=== PATIENT | male | born 1955 | race Caucasian/White ===

== ENCOUNTER 2016-11-04 05:50 | Inpatient (IN) | payer MEDICARE, MEDICAID ==
[~2016-11-04] VITALS: Ht 170.2 cm; Wt 64.1 kg
[2016-11-04] VITALS (12 sets, daily range): BP systolic 114–161; BP diastolic 80–104; PULSE 93–114; RESP 11–22; O2SAT 95–97
[~2016-11-04 05:50] MED LIST: ACLI400A2 IH; ADV250INH IH; ALBU8.5H2 INHALATION; ALEN70TA2 PO; ASCO-294 PO; ASPI-973 PO; CALC3.8S NS; CARV3.12 PO; CHOL10008 PO; CLOP75TA28 PO; DENO60DI SQ; DOCU-41 PO; FLUO20CA25 PO; FUR20 PO; IPRA0.2S51 IH; MEGE400O PO; METH12DI SQ; METH5TAB3 PO; MIRT15TA6 PO; MYA400 PO; OMEP20CA11 PO; POLY17PO2 PO; TAMS0.4C98 PO; TEST200V20 IM; TIOT18CA3 IH; ZOF8 PO; [UNRECOGNIZED DRUG - CODE] PO
--- NOTE | 2016-11-04 06:09 | ED.REPORT ---
HPI-Extremity Problem Lower Date of Service Nov 04, 2016 ED Provider: Lorene Titus MD The pt is a 61 y/o male w/ a hx of HTN, osteoporosis, anemia, and hyperlipidemia , presenting to the ED complaining of L hip pain via EMS due to a GLF at home. He describes "falling asleep standing up". The pt has taken 5, 5 mg Methadones for the pain. He usually takes 4, 5 mg Methadones to manage the pain. Nursing Notes Stated Complaint: GLF,HIP PAIN Chief Complaint: Extremity Trauma Nursing Notes Reviewed: Yes Allergies: Coded Allergies: Benzodiazepines (Verified Allergy, Unknown, "LOOPY", 11/04/16) hydromorphone HCl (Verified Allergy, Unknown, "LOOPY", 11/04/16) Scheduled Albuterol HFA (Proair HFA) 8.5 Gm Hfa.aer.ad 2 PUFFS INHALATION Q4H Alendronate Sodium (Fosamax) 70 Mg Tablet 70 MG PO WEEKLY Ascorbate Calcium (Vitamin C) 500 Mg Tablet 500 MG PO DAILY Aspirin (Aspirin) 81 Mg Tablet 81 MG PO DAILY Carvedilol (Coreg) 3.125 Mg Tablet 3.125 MG PO BID Clopidogrel (Clopidogrel) 75 Mg Tablet 75 MG PO DAILY Ethambutol (Ethambutol) 400 Mg Tablet 1,200 MG PO WEEKLY Fluoxetine (Fluoxetine) 20 Mg Capsule 20 MG PO DAILY Fluticasone/Salmeterol (Advair 250-50 Diskus) 60 Puff/Inh Disk 1 PUFF IH BID Furosemide (Furosemide) 20 Mg Tab 20 MG PO DAILY Ipratropium [place] (Ipratropium [place] Inhalant Solution) 0.2 Mg/1 Ml Solution 0.2 MG IH QID Megestrol Acetate (Megace) 400 Mg/10 Ml Oral.susp 400 MG PO DAILY Methadone (Methadone) 5 Mg Tablet 5 MG PO Q4H Mirtazapine (Mirtazapine) 15 Mg Tablet 15 MG PO HS Omeprazole (Omeprazole) 20 Mg Capsule.dr 20 MG PO DAILY Polyethylene Glycol 3350 (Polyethylene Glycol 3350) 17 Gm Powd.pack 17 GM PO DAILY Tamsulosin (Flomax) 0.4 Mg Capsule 0.4 MG PO DAILY Tiotropium [place] (Spiriva) 18 Mcg Cap.w.dev 18 MCG IH DAILY Scheduled PRN Docusate Sodium (Colace) 100 Mg Capsule 100 MG PO DAILY PRN PRN For Constipation Ondansetron (Zofran) 8 Mg Tablet 8 MG PO Q8H PRN PRN For Nausea Miscellaneous Medications Aclidinium [place] (Tudorza Pressair) 400 Mcg Aer.pow.ba 400 MCG IH Calcitonin,Wallis,Synthetic (Calcitonin-Wallis) 3.7 Ml [place].pump 3.7 ML NS Cholecalciferol (Vitamin D3) (Vitamin D3) 1,000 Unit Tab.chew 1,000 UNIT PO Denosumab (Prolia) 60 Mg/1 Ml Syringe 60 MG SQ Methylnaltrexone [place] (Relistor) 12 Mg/0.6 Ml Syringe 12 MG SQ Rifabutin (Rifabutin) 150 Mg Capsule 300 MG PO Testosterone Cypionate (Testosterone Cypionate) 200 Mg/1 Ml Vial 200 MG IM General Time Seen by MD: 06:02 Chief Complaint Hip injury left Hx Obtained From: Patient, EMS Arrived By: Ambulance Onset Occurred: Just prior to arrival Symptom Duration: Since onset Caused by: Fall on ground Immunizations: All up to date Recent Healthcare: No recent hospitalization, Recent doctor visit Similar Sx Previous: No Past Medical History Past Medical History 1. Bladder cancer, diagnosed on February 06, 2012 -poorly differentiated urothelial carcinoma, grade 3/3 2. Hypertension. 3. Hyperlipidemia. 4. Hepatitis C secondary to IV drug use. 5. History of TIA. 6. Bilateral pulmonary embolism diagnosed in June 2012. 7. History of fungemia with sepsis in August 2012 8. History C. diff colitis in August 2012 hospitalization. 9. History of enterocutaneous fistula. 10. COPD. 11. Coronary artery disease. 12. Chronic pain with opiate habituation. 13. Osteoporosis with history of compression fractures.. 14. Chronic anemia. 15. Left ventricular systolic heart failure, with ejection fraction of 40% to 45% with mild to moderate global hypokinesis of left ventricle on echocardiogram September 20, 2013. 16. Chronic kidney disease, stage 3. Past Surgical History Port-A-Cath in February 2012. Has had this one for a year radical bladder resection with construction of a neobladder Lumbar laminectomy in 1986. Smoking History Former Smoker Ambulatory Status Independent Review of Systems Musculoskeletal: Reports: Joint pain (L hip ) Complete sys rev & neg: except as marked. Physical Exam Initial Vital Signs Vital Signs (First) Date Time Temp Pulse Resp B/P Pulse Ox O2 Delivery O2 Flow Rate FiO2 11/04/16 06:07 36.4 114 16 143/97 97 Room Air Initial VS: Reviewed Left Hip: Positive: Leg externally rotated, Tenderness present... (Moderate) Ankle / Foot: No deformity, Neurologic intact, Vascular intact General/Constitutional: Awake, Alert Respiratory / Chest: Breath sounds = bilat, No rales Scattered minor wheezes throughout lung griggs Cardiovascular: Heart rate NL, Regular rhythm, Heart sounds NL Good peripheral pulses Skin: No rash, Warm, Dry No bruising over hips Multiple bruises throughout body Fragile skin Neurologic: Oriented X3, Speech NL Head / Eyes: Atraumatic, Normocephalic ENT: Atraumatic, Airway patent Neck: Atraumatic, Supple, Full range of motion Psychiatric: Affect NL, Mood NL Interpretation & Diagnostics Lab Results Interpretation Result Diagram: 11/04/16 0830 11/04/16 0830 Test 11/04/16 08:30 White Blood Count 18.3th/mm3 (3.8-10.1) Red Blood Count 3.78mil/mm3 (4.40-5.80) Hemoglobin 13.0g/dL (13.8-17.2) Hematocrit 37.7% (41.0-50.0) Mean Corpuscular Volume 99.7fL (81-100) Mean Corpuscular Hemoglobin 34.4pg (27.0-35.0) Mean Corpuscular Hemoglobin Concent 34.5% (32.0-37.0) Red Cell Distribution Width 15.2% (12.3-15.4) Platelet Count 182bil/L (150-400) Neutrophils (%) (Auto) 77.3% (40-74) Lymphocytes (%) (Auto) 11.3% (14-46) Monocytes (%) (Auto) 9.4% (4-12) Eosinophils (%) (Auto) 0.4% (0-5) Basophils (%) (Auto) 0.1% (0-3) Prothrombin Time 10.8sec (8.1-12.5) Prothromb Time International Ratio 1.01ratio Activated Partial Thromboplast Time 24.3sec (22.8-33.0) Sodium Level 133mEq/L (134-144) Potassium Level 4.9mEq/L (3.5-5.2) Chloride Level 99mEq/L (97-108) Carbon Dioxide Level 20mmol/L (18-29) Blood Urea Nitrogen 80mg/dL (8-27) Creatinine 2.52mg/dL (0.76-1.27) Estimat Glomerular Filtration Rate 28mL/min (>59) Glucose Level 228mg/dL (60-99) Calcium Level 8.6mg/dL (8.5-10.1) Total Bilirubin 0.9mg/dL (0.0-1.2) Aspartate Amino Transf (AST/SGOT) 68U/L (0-50) Alanine Aminotransferase (ALT/SGPT) 153U/L (0-44) Alkaline Phosphatase 97U/L (25-160) Total Protein 6.1g/dL (6.4-8.4) Albumin 3.6g/dL (3.4-5.0) ECG Interpretation ECG Interpretation: Rate 112 Sinus tachycardia Right atrial enlargement Posterior infarct, old Poor baseline No acute changes Time: 08:15 Interpreted by: Elevator Starter X-Ray Chest Interpretation Chest Xray Interpretation: Impression: No acute findings Interpretation / Wet Read by: Wet read ED physician X-Ray Interpretation Xray Interpretation: X-RAY PELVIS W/LAT HIP (LT) IMPRESSION: Comminuted left intertrochanteric fracture Dictated by: Kuldeep Crook M.D. on 11/04/2016 at 8:30 Approved by: Kuldeep Crook M.D. on 11/04/2016 at 8:33 Interpretation / Wet Read by: Interpret - Radiologist Re-Eval/Medical Decision Med Decision/Clinical Course 61-year-old gentleman with complex medical history. Recent admission to [facility] from [address] [place] [address] with a COPD exacerbation. He describes it as pneumonia however workup does not suggest this. He had a pulmonary embolism in [address] scan was done a month ago and showed no evidence of recurrent pulmonary embolism. He does have a history of significant steroid use over the course of his lifetime with osteoporosis. Currently has a left hip fracture. He will need to be admitted to hospitalist with orthopedic consult. Initial chest x-ray does not suggest pneumonia. He has got minor scattered wheezes only. White count is slightly elevated urine will be obtained. He does not have any signs or symptoms of infection or sepsis at this point. EKG shows no acute findings remainder of labs are unremarkable. Source of Hx: Old records, EMS Re-Evaluation/Progress : Time of Eval: 07:14 Re-Evaluation/Progress Note: Discussed radiology results, which showed fractures and discussed need for surgery. Discussed plan for admit. Consultation #1: Referral / Consult Name: Jean Nickerson MD Consulted With: Photoengraver Call Returned at: 09:56 Note: Discussed pt's case. He will try to fix it later today and he does not need a CT scan. Consultation #2: Referral / Consult Name: Irvin Monaco MD Consulted With: Hospitalist Call Returned at: 10:20 Interactive Project Manager: Will see patient, Agrees with eval, Agrees with plan, Accepts admit Counseled Regarding: Diagnosis, Lab results, Need for admission Discharge & Departure Impression: Primary Impression: Hip fracture Additional Impression: Fall from ground level Disposition: ADMITTED TO HOSPITAL Discharge Condition All VS Reviewed: Yes Condition: Stable Referrals: Heriberto Espino MD (PCP) Scribe Attestation Portions of this note were transcribed by Agustín Dietz. I, Dr. Titus personally performed the history, physical exam and medical decision-making; I reviewed and confirmed the accuracy of the information in the transcribed note. Signed by : Soraida Alonso, 11/04/16 and 08. copies to: Saulo Palma DO; Heriberto Espino MD, Shawna L MD Nov 04, 2016 06:09 Agustín Dietz Nov 04, 2016 08:20
[2016-11-04] MEDS ORDERED: Ondansetron 2 mg/mL 2 mL Inj IVPUSH ONE (07:25)
--- NOTE | 2016-11-04 08:35 | DRSVH ---
PROCEDURE: X-RAY PELVIS W/LAT HIP (LT) ([id number]) INDICATIONS: hip pain post fall TECHNIQUE: AP pelvis with lateral view(s) of the left hip(s). COMPARISON: None. FINDINGS: Bones: Comminuted left intertrochanteric fracture. Mild bilateral hip degeneration. Lower lumbar disc ogenic change is Soft tissues: The visualized bowel gas pattern is normal. No suspicious soft tissue calcifications. Surgical clips projecting in the pelvis IMPRESSION: Comminuted left intertrochanteric fracture Dictated by: Kuldeep Crook M.D. on 11/04/2016 at 8:30 Approved by: Kuldeep Crook M.D. on 11/04/2016 at 8:33
[2016-11-04 08:38] LABS: BASOPHILS % (AUTO) 0.1 % (0-3); EOSINOPHILS % (AUTO) 0.4 % (0-5); MONOCYTES % (AUTO) 9.4 % (4-12); Mean Corpuscular Hemoglobin 34.4 pg (27.0-35.0); Mean Corpuscular Volume 99.7 fL (81-100); NEUTROPHILS % (AUTO) 77.3 % (40-74); Platelet Count 182 bil/L (150-400)
[2016-11-04 08:53] LABS: INR 1.01 ratio
[2016-11-04] MEDS ORDERED: HYDROmorphone 1 mg/mL Inj IVPUSH PRN ×2 (10:15→11:55)
[2016-11-04] MEDS ORDERED: [UNRECOGNIZED DRUG - CODE] PO (11:42)
[2016-11-04] MEDS ORDERED: ALBU18HF INH (11:42)
[2016-11-04] MEDS ORDERED: SYMINH INH (11:42)
[2016-11-04] MEDS ORDERED: OXYC1TAB24 PO (11:42)
[2016-11-04] MEDS ORDERED: CARV3.122 PO (11:47)
[2016-11-04] MEDS ORDERED: ALEN70TA46 PO (11:47)
--- NOTE | 2016-11-04 12:03 | PCM.HPMED ---
Subjective Date of Service Nov 04, 2016 Primary Provider: Admitting Physician: Tabatha Monaco MD Primary Care Physician: Heriberto Espino MD Attending Physician: Tabatha Monaco MD Chief Complaint: Ground-level fall History of Present Illness: 61 y/o male w/ extensive medical history with former heavy smoker>40 pack years, COPD, recent COPD exacerbation in 09/18 at [facility], [place], [place], CAD w/ cardiomyopathy, CHF, most recent TTE september/2013 EF60-65%, no sig valvular dz, hx of bilateral PE, dvt in 2012, used to be on Coumadin, currently not on any AC , History of TIA, CKD, bladder CA, initially diagnosed on February 06, 2012 s/p radical bladder resection with construction of a neobladder from small bowel in HTN, HLD chronic hepC from former IVDU, not treated yet Chronic pain with opiate habituation. Osteoporosis with history of compression fractures. anemia pt presented today after presumed ground level fall, pt stated that he woke up in the morning, to the kitchen then he thinks that he fell asleep, did not remember exactly how he fell. After he fell, he asked for help to use ex- was currently living with him. Patient denied any prodromal sx prior to fall, doesn't remember the episode. denied lightheadedness, chest pain, shortness of breath, nausea, vomiting, blurry vision. Patient intermittently had "sticky" stools but no overt diarrhea, which was controlled with laxatives, and no problem urination with his neobladder, noticed his urine turned mildly cloudy recently. pt stated that he doesn't have any problems of breathing at night, denied cough with laying down flat. he can walk many blocks but had to stop due to tiredness and SOB, not due to chest pain. Patient was recommended to take lasix but stopped it a week ago as he thinks he is doing better. Pt denied taking aspirin, plavix, Coumadin, cannot remember which anticoagulant he was on for PE in the past, why it was stopped. pt currently not smoking quit in 2002, noted to have 44pack year hx of smoking. also smoke THC intermittently. Patient was recently hospitalized at [facility], dxed with COPD exacerbation. no antibiotics were given, treated with steroid presenting to the ED complaining of L hip pain via EMS due to a GLF at home. He describes "falling asleep standing up". The pt has taken 5, 5 mg Methadones for the pain. He usually takes 4, 5 mg Methadones to manage the pain. Review of Systems: Pertinent positives as noted in history of present illness. All other systems were reviewed and are negative Allergies Coded Allergies: Benzodiazepines (Verified Allergy, Unknown, "LOOPY", 11/04/16) hydromorphone HCl (Verified Allergy, Unknown, "LOOPY", 11/04/16) Home Medications from PCP Zan Patrick [phone] [id number] 10/20/2016 02:00 PM Page: 05/25 albuterol sulfate 2.5 mg/3 mL (0.083 %) solution for nebulization 2.5 mg/3 mL ( 0.083 %) INHALE THE CONTENTS OF 1 VIAL VIA NEBULIZER THREE TIMES EVERY DAY. FOSAMAX 70MG TABLETS 70 mg TAKE 1 TABLET BY MOUTH ONCE A WEEK ON MONDAY IN THE MORNING 30 MIN BEFORE 1ST FOOD, DRINK OR MEDS OF DAY azithromycin 250 mg tablet 250 mg take 1 tablet once daily MIACALCIN NASAL SPRAY MG INHALANT 200 unit/spray INHALE 1 SPRAY ONCE DAILY ALTERNATING NOSTRILS WITH EASH USE INSTRUCTED COREG 3.125MG TABLETS 3.125 mg TAKE 1 TABLET BY MOUTH TWICE A DAY COLACE CAPSULES 100MG 100 mg TAKE 1 CAPSULE BY MOUTH ONCE DAILY DOCUSATE SODIUM 250MG CAPSULES 250 mg TAKE 1 CAPSULE BY MOUTH ONCE DAILY Durable Medical Equipment Spacer device furosemide 20 mg tablet 20 mg take 1 tablet by oral route every day Incruse Ellipta 62.5 mcg/actuation powder for inhalation 62.5 mcg/actuation inhale 1 puff by inhalation route every day at the same time each day ipratropium bromide 0.02 % solution for inhalation 0.2 mg/mL (0.02 %) INHALE THE CONTENTS OF 1 VIAL VIA NEBULIZER EVERY 6 HOURS. Levaquin 500 mg tablet 500 mg take 1 tablet by oral route every 24 hours loperamide 2 mg tablet 2 mg take 1 tablet by oral route 2 times every day as needed for diarrhea methadone 5 mg tablet 5 mg take 1 tablet by oral route every 4 hours I will not provide early refills on this medicine. He HAS to be careful how he takes it and space them out so they last a month. That is his responsibility. omeprazole 20 mg tablet,delayed release 20 mg take 1 tablet by oral route every day PLAVIX 75MG TABLETS 75 mg TAKE 1 TABLET BY MOUTH ONCE DAILY polyethylene glycol 3350 17 gram/dose oral powder 17 gram/dose take (17G) by oral route every day mixed with 8 oz. water, juice, soda, coffee or tea prednisone 20 mg tablet 20 mg take 3 tabs in AM w food every day for 5 days, then 2 for 5 days, then 1 for 5 days, prn significant flair Prolia 60 mg/mL subcutaneous syringe 60 mg/mL inject 1 milliliter by subcutaneous route every 6 months in the upper arm, upper thigh or abdomen Ogone Vacuum Therapy kit use as directed RELISTOR 12MG/0.6ML INJECTION INJECTABLE 12 mg/0.6 mL INJECT 1 SYRINGEFUL SUBCUTANEOUSLY NEEDED Symbicort 160 mcg-4.5 mcg/actuation HFA aerosol inhaler 160 mcg-4.5 mcg/ actuation inhale 2 puff by inhalation route 2 times every day in the morning and evening testosterone cypionate 100 mg/mL intramuscular oil 100 mg/mL inject 1 milliliter by intramuscular route every 4 weeks testosterone cypionate 200 mg/mL intramuscular oil 200 mg/mL inject 1 milliliter by intramuscular route every 4 weeks Ventolin HFA 90 mcg/actuation aerosol inhaler 90 mcg inhale 2 puff by inhalation route every 4 - 6 hours as needed Vitamin C 500 mg tablet 500 mg take one tablet by mouth daily Vitamin D3 1,000 unit capsule 1,000 unit take one capsule by mouth daily Vitamin D3 1,000 unit tablet 1,000 unit TAKE 1 TABLET BY MOUTH ONCE DAILY zinc 50 mg tablet 50 mg take 1 tab PO daily PMH History of fungemia with sepsis in chorioretinitis in August 2012 hospitalization. History C. diff colitis in August 2012 hospitalization. History of enterocutaneous fistula. History of aspiration pneumonia contributing to ARDS and requiring mechanical ventilation History of anemia, thrombocytopenia, and splenomegaly. Lumbar laminectomy in 1986. Surgical History Radical cystectomy with neobladder August 2012 s/p repaired of bladder-bowel fistula Carotid artery angioplasty in the right side 08/15/2014 Carotid artery stent Rt 08/15 2014 Bilateral cataract surgery Prostatectomy Laminectomy L3-L4 1986 Family History Breast cancer, heart disease, prostate cancer, osteoporosis, fibromyalgia, lymphoma Social History Hx Alcohol Use: No Hx Substance Use: No Hx Tobacco Use: Yes (for heavy smoker, occ marijuana) Smoking Status: Former Smoker Additional Information lives with ex- Exam Vital Signs Vital Sign - Last Date Time Temp Pulse Resp B/P Pulse Ox O2 Delivery O2 Flow Rate FiO2 11/04/16 10:06 113 18 127/80 97 Room Air 11/04/16 06:07 36.4 Exam uncomfortable agitated with pain, no labored breathing, no accessory muscle use no JVD, MMM, no LAD bilateral forearms: nontender, nonblanching large scattered ecchymosis superficially regular rapid, nl s1, s2 no mrg decreased breathing sound anteriorly , no wheezing, crackles S,ND,NT,normoactive BS+ warm, 1+pitting eedema on BLE, pulses 2/2, sensory intact to left distally, DP2+ Lab and Diagnostics Result Diagram: 11/04/1630 11/04/16 0830 12-lead ECG sinus -244 no RV strain pattern Assessment & Plan Acute, active presumed ground level fall, POA, resultant left hip intertrochanteric fx. unlikely mechanical, could possibly cardiac or orthostatic. -telemetry for probable cardiac arrhythmia -consider stroke w/u given hx of TIA, vasculopath left hip intertrochanteric fx from fall, POA, Ortho is on board -spoke to Cardiology , greatly appreciate for pre-op assessment, will get CXR, TTE, pt may require brief diuretic course. -please wait for surgery unless it's emergent case until pt is medically optimized and evaluated -pain control with morphine given dilaudid allergy, of note given chronic methadone use, pt may require significant dose or [employer], will monitor respiratory status closely especially given COPD. sinus tachycardia, POA, could possible from pain itself, possible PE, V/S stable , no hypoxia. no s/s of ACS -will get troponin, d-dimer, TTE, possible v/q scan, systemic AC if suspicion for PE is high enough FUNMILAYO on CKD, POA, noticed bun/cr 50/2.04 09/15 at [facility], slightly worse -avoid renal toxin, renally adjust dose mild transaminitis with chronic hepC from former IVDU, coag WNL, no reported hx of cirrhosis, trend LFTs, follow up with GI for tx outpt Chronic pain with opiate habituation, will control with morphine, held methadone for now, watch for WD leukocytosis, POA, likely in the setting of stress, acute fx, will trend for now former heavy smoker>40 pack years, COPD, recent COPD exacerbation in 09/18 -currently respiratory status seemed stable, will do duonebs q4h, albuterol q2h prn -O2 supplement as needed target >92% -CXR bilateral forearm eccymosis, subactue>few wks per pt, PLT, h/h stable, coag WNL , unclear this was from trauma, monitor for now Chronic, stable CAD w/ cardiomyopathy, CHF, most recent TTE september/2013 EF60-65%, no sig valvular dz, as noted above hx of bilateral PE, dvt in 2012, used to be on Coumadin, currently not on any AC , as noted above History of TIA, non-focal on exam at the moment bladder CA, initially diagnosed on February 06, 2012 s/p radical bladder resection with construction of a neobladder from small bowel in , will get baseline UA given cloudy urine from hx. HTN, hold BP meds for now HLD, hold statin for now Osteoporosis with history of compression fractures, stable anemia, stable dispo:Patient will be admitted with inpatient status with expectation of inpatient therapy for more than 2 midnights diet:NPO dvt ppx:SCD Full code pt seemed more appropriate for PCC status or above in periop course given extensive medical problems although pt is currently stable addendum>pt still tachycardic, noted d-dimer 39, mild troponemia, remained asymptomatic, HD stable, was unable to reach at the moment, will try again addendum> discussed with , decided to delay surgery, pt will go to PCC. Given TTE findings, markedly reduced EF, regional WMA, ACS is on ddx, start asa, statin,mild IVF per , will do serial trops, CPK, EKG with active chest pain. Please consider pulmonary consult prior to surgery given COPD with recent exacerbation, respiratory status appeared stable for now, but high risks for respiratory Cx in juan jose-op course. Time spent 65min Tabatha Monaco MD Nov 04, 2016 12:03
[2016-11-04] MEDS ORDERED: Albuterol 2.5 mg/3 mL Inhalation Solution NEB PRN (12:20)
--- NOTE | 2016-11-04 12:20 | NUR ---
Transfer to [facility] Pt. transferred via gurney to [facility] at 1145 in stable condition. Pt. has severe pain with any movement and was crying out when we transferred with slider board. OR contacted and he will be going back around 1330. NPO since yesterday. Pt. denies chest pain, SOB, N/V. Denies tingling/numbness in LLE. Extremity warm with good pedal pulse.
[2016-11-04] MEDS: Albuterol-Ipratropium 3 mL Inhalation Solution NEB SCH ×3 (12:30→21:26)
--- NOTE | 2016-11-04 12:41 | DRSVH ---
PROCEDURE: X-RAY CHEST ONE VIEW, PORTABLE ([id number]) INDICATIONS: sinus tachy TECHNIQUE: One view of the chest was acquired. COMPARISON: [facility], , CHEST 1VW (PORTABLE), 11/23/2014, 22:19. FINDINGS: Surgical changes and devices: The left-sided Port-A-Cath central line has been removed in the interim . Lungs and pleura: The aeration of the lungs appears similar to the prior exam with chronic interstiti al changes probably present. No lobar consolidation, large effusion, or pneumothorax is evident. Mediastinum: Mediastinal contours appear normal. Heart size is normal. There is aortic atheroscler osis. Bones and chest wall: No suspicious bony lesions. Degenerative changes of the spine are present. O verlying soft tissues appear unremarkable. IMPRESSION: Stable chest. No acute cardiopulmonary process is evident. Dictated by: Mehran Taylor M.D. on 11/04/2016 at 12:38 Approved by: Mehran Taylor M.D. on 11/04/2016 at 12:39
--- NOTE | 2016-11-04 14:32 | DRSVH ---
PROCEDURE: X-RAY CHEST ONE VIEW, PORTABLE ([id number]) INDICATIONS: pre op HIP FX TECHNIQUE: One view of the chest was acquired. COMPARISON: [facility], CT, CTA CHEST, 07/17/2016, 9:17 PM. [facility], CR , CHEST 1VW (PORTABLE), 11/23/2014, 22:19. FINDINGS: Surgical changes and devices: None. Lungs and pleura: No pleural effusions or pneumothorax. Lungs are clear. Lung volumes are increase d with flattening of the hemidiaphragms suggesting COPD. Mediastinum: Mediastinal contours appear normal. Heart size is normal. Bones and chest wall: No suspicious bony lesions. Overlying soft tissues appear unremarkable. IMPRESSION: No acute cardiopulmonary disease. Dictated by: Gabo MANUEL Interpreted: Patricia Urena MD on 11/04/2016 at 9:07 Approved by: Patricia Urean M.D. on 11/04/2016 at 14:30
[2016-11-04 14:52] LABS: BASOPHILS % (AUTO) 0.2 % (0-3); EOSINOPHILS % (AUTO) 0.3 % (0-5); MONOCYTES % (AUTO) 10.9 % (4-12); Mean Corpuscular Volume 100.3 fL (81-100); Platelet Count 152 bil/L (150-400)
--- NOTE | 2016-11-04 15:11 | DRSVH ---
[facility] [address] [place] [address] Echocardiogram Report Name: ANJELICA WARNER LStudy Date: 11/04/2016 Height: 67 in Hospital Exam Location: [facility] Weight: 135 lb Gender: Male BSA: 1.7 m2 : 1955 Age: 61 yrs BP: 127/80 mmHg Reason For Study: PRE-OP, HIP FRACTURE Ordering Physician: HOSPITALIST CARLOSerformed By: Noé Matthew Referring Physician: RAYNE PERALES Interpretation Summary The study quality was technically difficult. The left ventricle is normal in size. The ejection fraction is estimated to be 35-40%. Base to mid septum appears to be akinetic. Anterior and the inferior wall not well visualized. [place] appears to be ellen [place]. Compared to the prior exam, left ventricular function is significantly decreased. The right ventricle is grossly normal size. Right ventricular systolic function is mildly reduced. No significant valvular pathology seen. Mild atherosclerotic plaque(s) in the aortic arch. The IVC is of normal diameter and collapses greater than 50% with a sniff. This suggests a low right atrial pressure of 3 mm Hg. Procedure: A two-dimensional transthoracic echocardiogram with color flow and Doppler was performed. The study quality was technically difficult. Patient was supine due to left hip fracture. Most views obtained were obtained subcostally. The heart rate ranged between 110-114 bpm during the study. The patient was in sinus tachycardia with heart rates between 110-114 bpm during the exam. Left Ventricle: The left ventricle is normal in size. There is normal left ventricular wall thickness. The ejection fraction is estimated to be 35-40%. Base to mid septum appears to be akinetic. Anterior and the inferior wall not well visualized. [place] appears to be ellen [place]. Compared to the prior exam, left ventricular function is significantly decreased. Diastolic function could not be accurately assessed due to tachycardia. Right Ventricle: The right ventricle is grossly normal size. Right ventricular systolic function is mildly reduced. Atria: The left atrium is not well visualized. Right atrium not well visualized. Mitral Valve: There is mild mitral annular calcification. There is no mitral regurgitation noted. Aortic Valve: The aortic valve is not well visualized. There is no aortic valve stenosis. No aortic regurgitation is present. Tricuspid Valve: The tricuspid valve is not well visualized, but is grossly normal. Pulmonary artery pressures cannot be estimated because of the lack of a measurable TR jet velocity. There is trace tricuspid regurgitation. Pulmonic Valve: The pulmonic valve is not well visualized. Great Vessels: The aortic root is normal size. The ascending aorta could not be visualized. Mild atherosclerotic plaque(s) in the aortic arch. The pulmonary artery is not well visualized, but is probably normal size. The IVC is of normal diameter and collapses greater than 50% with a sniff. This suggests a low right atrial pressure of 3 mm Hg. Pericardium/ Pleura There is no pericardial effusion. There is an anterior echo-free space consistent with a fat pad. There is no pleural effusion. MMode/2D Measurements & Calculations LVOT diam: 2.4 cm Ao root diam: 3.7 cm Ao Arch Diam (Prox Trans): 2.7 cm Doppler Measurements & Calculations PA V2 max: 98.6 cm/sec PA V2 mean: 57.2 cm/sec PA mean P.6 mmHg PA pr(Accel): 44.7 mmHg Reading Physician:ANGEL LUIS
[2016-11-04 15:20] LABS: Magnesium 2.2 mg/dL (1.6-2.6); Phosphorus 4.8 mg/dL (2.5-4.9)
--- NOTE | 2016-11-04 16:07 | CONS ---
[address] [address] CONSULTATION REPORT PATIENT: ANJELICA WARNER : 1955 MR#: [id number] ADMIT: 11/04/2016 JOB ID: [id number] DATE OF SERVICE: 11/04/2016 CHIEF COMPLAINT: Left hip pain. HISTORY OF PRESENT ILLNESS: The patient is a 61-year-old male who got up this morning to get a drink of water and fell, perhaps he tripped while, at home. He lives at home and gets home health with [employer] and does not use any ambulatory aids. He is in chronic pain and has a history of bladder cancer. After the fall he had onset of severe acute left hip pain and was unable to ambulate. PAST MEDICAL HISTORY: Includes bladder cancer, which he is now cancer free after a radical cystectomy. He has COPD but is not oxygen dependent. Describes his health as not particularly good. PAST SURGICAL HISTORY: Includes the bladder resection. PHYSICAL EXAMINATION: Blood pressure 126/91, pulse rate 111 respirations 18, temperature 36.7. He is alert and cooperative, in no acute distress. His left hip has tenderness to palpation. He has pain with any attempt at range of motion. The skin overlying the hip is intact. His left lower extremity is shortened and externally rotated. His foot is warm, pink, and well perfused. IMAGING PROCEDURE: X-rays demonstrate a left subtrochanteric femur fracture with some comminution. ASSESSMENT: Left subtrochanteric femur fracture. PLAN: We discussed treatment options for this and he would like to proceed with a left hip nailing, possible open reduction internal fixation with cable. We discussed the risks, benefits, and possible complications of the procedure. All questions were answered and he wished to proceed. We will plan for surgery once he is deemed to be medically optimized for surgical treatment.
[2016-11-04] MEDS: MeTOProlol XL 25 mg ER24 Tablet PO SCH (16:45)
[2016-11-04] MEDS: Heparin 5,000 Unit/mL Inj SUBQ SCH (16:46)
--- NOTE | 2016-11-04 17:17 | CONS ---
[address] [address] CONSULTATION REPORT PATIENT: ANJELICA WARNER : 1955 MR#: [id number] ADMIT: 11/04/2016 JOB ID: [id number] DATE OF SERVICE: 11/04/2016 CARDIOLOGY CONSULT: REASON FOR CARDIOLOGY CONSULT: For preop evaluation for left hip surgery. CHIEF COMPLAINT: Had a fall. PRESENT HISTORY: This 61-year-old male who has a history of carotid artery disease status post right carotid artery stenting in 2014 at [place] details not available, history of chronic hepatitis C, essential hypertension, hyperlipidemia, chronic kidney disease, bladder cancer status post radical bladder resection with new construction from small bowel in August 2012, chemotherapy prior to that, history of chronic back pain, osteoporosis, compression fractures, anemia, chronic pain with opiate habituation, history of TIA, history of DVT and pulmonary embolism in 2012, history of LV ejection fraction 40% to 45% based on echocardiogram done on September 20, 2013 which later on improved to 60% to 65% based on echocardiogram which was done on October 14, 2013, today had a fall and broke his left hip and got admitted to the hospital. He is being considered to have left hip surgery. Cardiology consult was sought. This is the first time I am seeing this patient. According to the patient, he has significant COPD. He has a chronic shortness of breath on mild exertion. Recently he was treated for COPD exacerbation with different antibiotics and prednisone. Today he was walking to the kitchen. He was standing and then felt sleepy and had a fall. According to him, he did not lose consciousness. He did not have any preceding chest pain or worsening shortness of breath or palpitation. He did not have any stroke. No obvious incontinence. The patient was seen in the ED. He has a sinus tachycardia at a rate about 112. He underwent echocardiogram today, which was a difficult study. LV ejection fraction appears to be in the range of 35% to 40%. Base to mid septum appears to be akinetic, however anterior and inferior manzo not well visualized. [place] was ellen okay. Right ventricle size was normal. Right ventricular function mildly reduced. No significant valvular pathology. Right ventricle was not dilated and was collapsing more than 50% on inspiration suggestive of right atrial pressure about 3 mmHg. PAST MEDICAL HISTORY: History of peripheral arterial disease including carotid artery disease, not sure about CAD, history of severe COPD, emphysema, essential hypertension, hyperlipidemia, bladder cancer status post radical bladder resection and new construction, chronic hepatitis C, history of chemotherapy prior to bladder surgery, chronic pain with opiate habituation, osteoporosis, anemia, history of TIA, history of bilateral PE and DVT in 2013. PAST SURGICAL HISTORY: As stated above. ALLERGIES: Benzodiazepines and hydromorphone. MEDICATIONS: He is on albuterol inhalers, Fosamax, azithromycin 250 mg daily, Coreg 3.125 mg twice a day, Colace capsule, Lasix 20 mg every day, ipratropium inhalers, Levaquin 500 mg 24 hours, loperamide 2 mg 1 tablet oral two times every day as needed for diarrhea, methadone 5 mg every 4 hours, omeprazole 20 mg daily. He was supposed to take Plavix 75 mg daily and aspirin as well. However, according to the patient, from last two weeks he is not taking it. He is on testosterone supplement, multivitamins, zinc, as well as Prolia 60 mg/mL 1 mL every six months. FAMILY HISTORY: Positive for breast cancer, heart disease, prostate cancer, osteoporosis, fibromyalgia, lymphoma. SOCIAL HISTORY: He was a heavy smoker. At present, smokes marijuana but not smoking cigarettes. Denies any alcohol abuse. REVIEW OF SYSTEMS: Ten point review of systems was obtained and negative except as stated above. PHYSICAL EXAMINATION: Blood pressure 126/91, heart rate 111, oxygen saturation room air 95%, temperature 36.7. HEENT: No significant jaundice. Neck: No apparent JVD. Chest: Decreased air entry with some fibrotic crackles bilaterally. At present no obvious rhonchi. CVS: S1 appears normal. P2 does not appear to be loud. No S3. No S4. No significant murmur. Abdomen: I do not appreciate any obvious pulsatile mass. Extremities: 1+ bilateral pedal edema. Vascular: Feeble distal pulses. No evidence of critical limb ischemia. PROCESS ARTIST: Alert. Oriented to time, place, and person. LABORATORIES: WBC 17.7, hemoglobin 12.2, MCV 100.3, platelets 152, polymorphs 76. Sodium 134, potassium 5.4, BUN 78, creatinine 2.32, with normal phosphorus and magnesium. Total bilirubin 1.1. AST 63, ALT 142. Initial troponin T 0.019 and repeat less than 0.010. ProBNP 1725. EKG today at about 8:15 a.m. in the emergency department revealed sinus rhythm, sinus tachycardia rate about 112, with some nonspecific ST-T changes. I do not see any pathological Q-waves or ST elevation or significant ST depression. According to the chart, [facility] chest. There was no pulmonary embolism. X-ray chest today revealed stable chest. No acute cardiopulmonary process. There was aortic atherosclerosis. In November 2012 CT abdomen revealed about 3.5 cm infrarenal abdominal aortic aneurysm. ASSESSMENT AND PLAN: This 61-year-old male who has a history of right carotid artery stenting, details not available, clinical suspicion for bilateral lower extremity peripheral artery disease, risk factors for coronary artery disease, essential hypertension, hyperlipidemia, severe COPD with underlying emphysema, chronic hepatitis C, renal insufficiency, LV ejection fraction 35% to 40% based on echocardiogram done today, being planned to have left hip surgery for left hip subtrochanteric fracture. The patient has two sets of troponin. Based on troponin there is no evidence of acute coronary syndrome. On surface EKG I do not see obvious pathological Q-waves or significant ST depression or ST elevation. The patient has mild sinus tachycardia. He is in constant pain, which may be a trigger. The patient is lying down flat. On 2D echo right atrial pressure was about 3 mmHg. Clinically, he is not in volume overload or gross congestive heart failure. As this surgery is important, we do not have much time to do ischemic workup. At this point of time because of underlying comorbid conditions and renal insufficiency and need for urgent surgery, he is not a candidate for invasive cardiac workup or left heart catheterization which will delay the surgery. One of the reasonable approaches is to optimize his medical conditions including cardiopulmonary status. He is going to be intermediate to high risk for perioperative cardiovascular complications. Discussed the plan with our hospitalist team as well as with the patient and his family members. He understands the risk involved and prognosis and need for surgery. The patient stopped taking anti-platelet therapy a couple of weeks ago. I will put him back on at least aspirin 81 mg daily. He has diffuse ecchymosis in his upper extremities. Denies any major bleed. In his case anti-platelet therapy benefits exceed the risk. I will put him on beta kitty as well. At present, he is not actively wheezing. He used to take carvedilol at home. He has chronic hepatitis C. Considering his atherosclerotic vascular disease, he will need statin therapy. Will start with Lipitor 20 mg with close watch on his liver function. At present I will not initiate angiotensin-converting enzyme inhibitor as his creatinine is 2.32. On November 23, 2014 it was 1.4. Repeat potassium again. On surface EKG, there is no evidence of hyperkalemia. Management of underlying pulmonary issues I will leave up to the hospitalist team. The patient will need close hemodynamic monitoring. Will recommend avoiding major fluid shift. Consider pulmonary embolism prophylaxis and GI prophylaxis as well. Cardiology service will be available. Please feel free to call if need any further assistance. Thanks for the cardiology consult. Total time spent today at least 70 minutes.
--- NOTE | 2016-11-04 17:25 | NUR ---
Took over pt care Pt transferred from [facility] to [facility] room 2025 at about 1725. Report received from [facility] RN. Per report pt hasn't voided yet. Pt tried again however unable to void. Bladder scan showing retention of 743ml. made aware, Orders to insert alejandro cath. Pt refusing at this time stating will try again. Blood sugars 308, made aware no new orders at this time. spud grader RN aware.
[2016-11-04] MEDS: 0.9% Sodium Chloride 1,000 ML IV SCH (18:47)
--- NOTE | 2016-11-04 22:43 | NUR ---
Urinary Retention Patient reports urge to void and sensation of fullness. Unable to void into the urinal despite repeated attempts. Bladder scanned for >800ml. Patient anxious about getting a alejandro, states he is a "difficult start" and he is worried that it will hurt. Page to hospitalist for numbing. Addendum: 11/04/16 at 2336 by LOLA STEWART RN Order for xylocaine gel received from hospitalist. Patient pre-medicated with 4mg IV morphine and 4mg IV zofran. 16 Fr alejandro catheter lubricated with xylocaine gel and inserted without difficulty. 1150 ml clear yellow urine drained. Patient reports relief of sensation of fullness.
[2016-11-04] MEDS ORDERED: Lidocaine 2% 5 mL Topical Jelly TOPICAL ONE (22:50)
[2016-11-04] MEDS: Ondansetron 2 mg/mL 2 mL Inj IVPUSH PRN (23:13)
[2016-11-05] VITALS (22 sets, daily range): BP systolic 101–137; BP diastolic 73–92; PULSE 70–114; RESP 9–20; O2SAT 91–100
[2016-11-05] MEDS: Albuterol-Ipratropium 3 mL Inhalation Solution NEB SCH ×6 (00:33→20:48)
[2016-11-05] MEDS: Heparin 5,000 Unit/mL Inj SUBQ SCH ×3 (00:41→16:30)
--- NOTE | 2016-11-05 05:17 | NUR ---
Refused lab Draw Patient refused am lab draw because he is "a really tough stick" and he does not believe the geophysical laboratory chief will be able to obtain a specimen. Patient states that in the past he has had "a port that they could get blood out of" and this has been the best way for him to have blood drawn during previous hospital stays.
--- NOTE | 2016-11-05 06:32 | NUR ---
Pain Management Patient reporting "unbearable" pain in left hip with 40 minutes remaining to next available dose of morphine. Page to hospitalist for alternative pain management. Awaiting response.
[2016-11-05] MEDS ORDERED: fentaNYL-PF 50 mCg/mL 2 mL Inj IVPUSH ONE (06:45)
[2016-11-05] MEDS: Ondansetron 2 mg/mL 2 mL Inj IVPUSH PRN (07:20)
[2016-11-05] MEDS: MeTOProlol XL 25 mg ER24 Tablet PO SCH ×2 (07:36→22:06)
[2016-11-05] MEDS ORDERED: EPHEDrine/NS 5 mg/mL 5 mL Syringe ONE (07:53)
[2016-11-05] MEDS ORDERED: Phenylephrine/NS-PF 100 mCg/mL 5 mL Syringe IVPUSH ONE (07:53)
[2016-11-05] MEDS ORDERED: Ondansetron 2 mg/mL 2 mL Inj ONE (07:53)
[2016-11-05] MEDS ORDERED: Propofol 10 mg/mL 20 mL Inj ONE (07:53)
[2016-11-05] MEDS ORDERED: fentaNYL-PF 50 mCg/mL 2 mL Inj ONE (07:53)
[2016-11-05 09:06] LABS: BASOPHILS % (AUTO) 0.2 % (0-3); EOSINOPHILS % (AUTO) 1.1 % (0-5); MONOCYTES % (AUTO) 10.6 % (4-12); Mean Corpuscular Hemoglobin 33.3 pg (27.0-35.0); Mean Corpuscular Volume 99.1 fL (81-100); NEUTROPHILS % (AUTO) 72.4 % (40-74); Platelet Count 131 bil/L (150-400)
[2016-11-05 09:49] LABS: Magnesium 2.3 mg/dL (1.6-2.6); Phosphorus 4.8 mg/dL (2.5-4.9); TROPONIN T 0.011 ug/L (0.0-0.011)
--- NOTE | 2016-11-05 10:32 | NUR ---
Off unit to OR for L hip surgery
--- NOTE | 2016-11-05 12:17 | PROG NOTE ---
[address] [address] PROGRESS NOTE PATIENT: ANJELICA WARNER : 1955 MR#: [id number] ADMIT: 11/04/2016 JOB ID: [id number] DATE: 11/05/2016 SUBJECTIVE: The patient lying on bed, flat. No active chest pain or worsening shortness of breath or PND, orthopnea or stroke-like symptoms. No new cardiovascular symptoms. In summary, this 61-year-old male who has a history of carotid artery disease, status post right carotid artery stenting in 2014 at [place], details not available, history of chronic hepatitis C, history of essential hypertension, hyperlipidemia, chronic kidney disease, bladder cancer status post radical bladder resection with new construction from small bowel in August 2012, chemotherapy prior to that, history of chronic back pain, narcotic use, osteoporosis, compression fracture, anemia, history of TIA, history of DVT and pulmonary embolism in 2012, history of LV ejection fraction 40-55% based on echocardiogram done on September 20, 2013 which later on got improved to 60-65% based on echocardiogram in October 14, 2013, got admitted yesterday as he had a fall and broke his left hip. The patient was not sure whether he passed out or not. The patient also has severe COPD with emphysema. In the hospital, he underwent serial troponin which ruled out acute coronary syndrome. He underwent echocardiogram yesterday which revealed LV ejection fraction 35-40%. Base to mid septum appears to be akinetic, however, anterior and inferior manzo were not well visualized. The apex was ellen okay. Right ventricle function was mildly reduced. No significant valvular pathology. Right atrial pressure was about 30 mmHg. The patient was sinus tachycardic in the ER. The patient was started on beta kitty. OBJECTIVE: Blood pressure 137/85, heart rate in the 80s, respiratory rate 18, oxygen saturation on room air 95%. I do not appreciate any obvious JVD. Chest: Decreased air entry with prolonged bilateral expiratory phase. However, no active significant rhonchi. CVS: S1 appears normal. P2 does not appear to be loud. No S3. No S4. No significant murmur. Abdomen: No obvious pulsatile mass. Extremities: Mild bilateral pedal edema. Feeble distal pulses. However, no evidence of critical limb ischemia. Both feet appear to be warm at present. LINE CREW SUPERVISOR: Alert and oriented to time, place, and person. Telemetry: Sinus rhythm without any significant sustained arrhythmias. Sodium 138, potassium 5.3, yesterday it was 5.4. BUN 17, creatinine 2.01. Creatinine has decreased from 2.52, phosphorus 4.8, magnesium 2.3. Calcium 9.1, total bilirubin 0.9. AST 65. On November 04 68. ALT 117 and it was 153 on admission. ASSESSMENT AND PLAN: Left ventricular dysfunction with possibility of ischemic cardiomyopathy, without any acute coronary syndrome with known risk factors for coronary artery disease, known right carotid artery stenting, peripheral artery disease, hypertension, hyperlipidemia, severe chronic obstructive pulmonary disease with underlying emphysema, chronic hepatitis C, chronic renal insufficiency, mild hyperkalemia who is being planned to have left hip surgery for left hip subtrochanteric fracture. His LV ejection fraction 35% to 40%. As I mentioned in detail yesterday, left hip surgery is kind of an urgent surgery. Considering his overall medical conditions, we do not have much time to do further cardiac workup. In fact, at this point of time, he is not a candidate for any invasive cardiac procedures. At present, he is hemodynamically stable. He is not in overt congestive heart failure based on my clinical examination. In fact he is tolerating gentle IV hydration. His creatinine has improved. He is lying down flat. On 2D echo, right atrial pressure was about 3 mmHg. Considering his underlying multiple medical problems, overall he is intermediate to high risk for perioperative cardiovascular complications. Discussed the plan with the patient. He is willing to undergo the surgery and willing to take this risk. He is tolerating anti-platelet therapy, small dose of statin as well as beta kitty. I will further increase beta kitty, metoprolol succinate from 25 mg daily to 25 mg twice a day. Consider close hemodynamic monitoring. Avoid major fluid shift. Consider pulmonary embolism and GI prophylaxis. Close watch on his electrolytes. On surface EKG, there was no evidence of clinical hyperkalemia. Today, after 12, from Cardiology Dr. oCe will be available. Feel free to call us if he needs any further assistance. TOTAL TIME SPENT: Today about 40 minutes. JASMYN
[2016-11-05] MEDS ORDERED: Lactated Ringer's 1,000 ML IV SCH (13:01)
[2016-11-05] MEDS ORDERED: Lactated Ringer's 500 ML IV PRN (13:01)
--- NOTE | 2016-11-05 13:01 | PCM.HPANE ---
Patient Data Surgeon Admitting Provider:Tabatha Monaco MD Attending Provider:Tabatha Monaco MD Primary Care Physician:Heriberto Espino MD Other Provider: Reason for Visit Left Hip Fx Ht/WT & BMI Height (Feet): 5 Height (Inches): 7.00 Weight (Kilograms): 63.800 Body Mass Index 22.18 Allergies Coded Allergies: Benzodiazepines (Verified Allergy, Unknown, "LOOPY", 11/04/16) hydromorphone HCl (Verified Allergy, Unknown, "LOOPY", 11/04/16) Past Anesthesia History Anesthesia History: Denies:: Anesthesia Reactions, Fam Anesthesia Reaction, Fam Malignant Hypertherm, Malignant Hyperthermia Diabetes History Hx Diabetes?: No Current Bedside Blood Glucose: 267 MRSA MRSA: No Medications Hypertension Medication: Yes Home Meds Incl Beta Murali: Yes Date Beta Murali Taken: Nov 05, 2016 Time Beta Murali Taken: 07:00 Reported Medications Alendronate/Vitamin D3 1 Each Tablet1 Tab PO Every Monday #12 11/04/16 Carvedilol 3.125 Mg Tablet3.125 Mg PO BID #180 11/04/16 Albuterol Sulfate (Ventolin HFA Inhaler)200 Puff/18 Gm Inhaler2 Puffs INH Q4H PRN For Shortness of Breath #36 11/04/16 Budesonide/Formoterol 160-4.5 mcg Inh (Symbicort 160-4.5 mcg Inh)120 Puff Inhaler2 Puffs INH BID #10 11/04/16 Polyethylene Glycol 3350 (Natura-Lax)17 Gram/Dose Shggjh54 Gm PO DAILY #527 11/04/16 oxyCODONE-Acetaminophen 5-325 mg 1 Each Tablet1 Tab PO TID #84 11/04/16 Cholecalciferol (Vitamin D3) (Vitamin D3)1,000 Unit Tab.chew1,000 Unit PO DAILY 01/04/16 Testosterone Cypionate 200 Mg/1 Ml Yhwq619 Mg IM Monthly 01/04/16 Tiotropium [place] (Spiriva)18 Mcg Cap.w.dev18 Mcg IH DAILY #1 PKG Ref 0 01/04/16 Methadone 5 Mg Tablet5 Mg PO QID 01/04/16 Furosemide 20 Mg Tab20 Mg PO DAILY 30 Days Ref 0 01/04/16 Fluticasone/Salmeterol (Advair 250-50 Diskus)60 Puff/Inh Disk1 Puff IH BID #1 DISK Ref 0 01/04/16 Discontinued Reported Medications Ondansetron (Zofran)8 Mg Tablet8 Mg PO Q8H PRN For Nausea 01/04/16 Ascorbate Calcium (Vitamin C)500 Mg Ayythx938 Mg PO DAILY 01/04/16 Aclidinium [place] (Tudorza Pressair)400 Mcg Aer.pow.ba400 Mcg IH 01/04/16 Tamsulosin (Flomax)0.4 Mg Capsule0.4 Mg PO DAILY Ref 0 01/04/16 Rifabutin 150 Mg Tpnudrn435 Mg PO 01/04/16 Methylnaltrexone [place] (Relistor)12 Mg/0.6 Ml Lmkquue38 Mg SQ 01/04/16 Denosumab (Prolia)60 Mg/1 Ml Sxlbhun80 Mg SQ 01/04/16 Polyethylene Glycol 3350 17 Gm Powd.pack17 Gm PO DAILY 01/04/16 Omeprazole 20 Mg Capsule.dr20 Mg PO DAILY Ref 0 01/04/16 Mirtazapine 15 Mg Dpcfja13 Mg PO HS Ref 0 01/04/16 Megestrol Acetate (Megace)400 Mg/10 Ml Oral.oszo989 Mg PO DAILY 01/04/16 Ipratropium [place] (Ipratropium [place] Inhalant Solution)0.2 Mg/1 Ml Solution0.2 Mg IH QID Ref 0 01/04/16 Fluoxetine 20 Mg Oisiaoe59 Mg PO DAILY Ref 0 01/04/16 Ethambutol 400 Mg Tablet1,200 Mg PO WEEKLY 01/04/16 Docusate Sodium (Colace)100 Mg Vsvbaay699 Mg PO DAILY PRN For Constipation Ref 0 01/04/16 Clopidogrel 75 Mg Kagtnr79 Mg PO DAILY Ref 0 01/04/16 Carvedilol (Coreg)3.125 Mg Tablet3.125 Mg PO BID Ref 0 01/04/16 Calcitonin,[place],Synthetic (Calcitonin-[place])3.7 Ml [place].pump3.7 Ml NS 01/04/16 Aspirin 81 Mg Umexfv67 Mg PO DAILY Ref 0 01/04/16 Alendronate Sodium (Fosamax)70 Mg Jfhluo54 Mg PO WEEKLY 30 Days Ref 0 01/04/16 Albuterol HFA (Proair HFA)8.5 Gm Hfa.aer.ad2 Puffs INHALATION Q4H #1 INHALER 8/15/16 History History of ENT Problems?: No HEENT History: Positive for:: Cataracts Hearing Problem Denies:: Dysphagia Sinus Problem Denture Type: Full- Upper Full- Lower Teeth Condition: Within Normal Limits No Teeth Hx of Heart Problems?: Yes Cardiovascular History: Positive for:: Chest Pain (Hx of ID ) Edema Hypertension Irregular Heartbeat Thrombophlebitis Denies:: Cardiac Surgery Congestive Heart Failure Heart Murmur Pacemaker Hx of Respiratory Problem?: Yes Respiratory History: Positive for:: Asthma COPD Dyspnea Pneumonia Denies:: Chest Surgery Emphysema Hemoptysis Tuberculosis Hx Neurologic Problems?: Yes Neurological History: Positive for:: CVA (TIA) Dizziness Headaches Denies:: Alzheimer's Disease Dementia Parkinson's Disease Seizures Hx of GI Problems?: No Hx of Problems?: Yes Genitourinary History: Positive for:: Urinary Tract Infection Denies:: HX of Hemodialysis Kidney Stones HX of Peritoneal Dialysis: No Male Hx: Positive for:: Prostate Problems (prostectomy ) Denies:: Scrotal Mass Testicular Surgery Hx Musculoskeletal Problems?: Yes Musculoskeletal History: Positive for:: Back Injury (compression fractures L1 , L3, T6, T8) Musculoskeletal Trauma (back) Denies:: Joint Replacement Hx of Psycho/Social Problems?: No Psycho Social History: Positive for:: Anxiety Denies:: Bipolar Disorder Hx Depression Suicide Attempt Hx Surgeries?: Yes (abdominal) Hx Any Other Health Problems?: No Other History: Positive for:: Cancer (bladder) Hospitalization (multiple) Denies:: Endocrine Disease Thyroid Disease History Blood Transfusions: Positive for:: Accept Blood Products? Blood Transfusions Denies:: Blood Transfuse Reaction Hx Diabetes: NoBedside Blood Glucose: 267 Hx Alcohol Use: NoHx Substance Use: No Smoking Status: Former Smoker Have You Smoked inLast 12 mo: No Stop/Bang Treated for Sleep Apnea?: No Do You Have a CPAP Machine?: No S-Snoring: Do You Snore Loudly: No T-Tired: feel tired, fatigued: Yes O-Obsered: Observed not breath: No P-Blood Pressure: treated: Yes B- Body Mass Index > 35 kg/m2: No A- Age over 50: Yes N- Neck Large Circumference: No G- Gender Male: Yes TANGELA Total Score: 3 TANGELA Risk Assessment: Low Risk, <3 Yes Risk Assessment Category Category 1A: Patient has history of documented sleep apnea, and HAS NOT received any narcotic, sedative or anesthesia administration during this stay. Category 1B: Patient has history of documented sleep apnea, and HAS received any narcotic , sedative or anesthesia administration during this stay Category 2: Patient has SUSPECTED Obstructive Sleep Apnea, and HAS received any narcotic , sedative or anesthesia administration during this stay. Category 3: Patient has SUSPECTED Obstructive Sleep Apnea and HAS NOT received narcotic, sedative or anesthesia administration during this stay. Category 4: Outpatient in Procedural Areas with known sleep apnea or who screen positive for High Risk via the STOP/BANG questionnaire. Exam Exam Vital Signs Vital Signs Date Time Temp Pulse Resp B/P Pulse Ox O2 Delivery O2 Flow Rate FiO2 11/05/16 10:44 83 11/05/16 08:40 70 18 95 Room Air 11/05/16 07:31 36.7 87 18 137/85 95 Room Air 11/05/16 05:15 88 11/05/16 05:01 91 18 95 Room Air General Appearance: Alert, Oriented X3, Cooperative HEENT/AIRWAY: MP 2 Lungs: Clear to Auscultation Heart: Exam Unremarkable Meds/Labs/Diagnostics Admission Meds Current Medications Morphine Sulfate (Morphine 2 mg/ mL Syringe) for severe pain Q2H ONCE IVPUSH Last administered on 11/04/16 13:11; Start 11/04/16 at 12:30; Stop 11/04/16 at 12:36; Status DC Albuterol/ Ipratropium (DuoNEB Inh Soln) 3 ml Q4H NEB Last administered on 11/05 08:39; Start 11/04/16 at 12:30 Aspirin (Aspirin Chewable) 81 mg DAILY PO Last administered on 11/05/16 07:36 ; Start 11/04/16 at 15:50 Atorvastatin Calcium (Lipitor) 20 mg HS PO Last administered on 11/04/16 21:18 ; Start 11/04/16 at 21:00 Metoprolol Succinate 25 mg 25 mg DAILY PO Last administered on 11/05/16 07:36 ; Start 11/04/16 at 15:50; Stop 11/05/16 at 10:07; Status DC Sodium Chloride (Normal Saline) 1,000 ml @ 40 mls/hr Q24H IV Last administered on 11/04/16 18:47; Start 11/04/16 at 15:55 Heparin Sodium (Porcine) (Heparin Inj) 5,000 unit Q8 SUBQ Last administered on 11/05/16 00:41; Start 11/04/16 at 16:30 Lidocaine HCl (Xylocaine 2% Topical Jelly) 5 ml ONCE ONCE TOPICAL Last administered on 11/04/16 23:31; Start 11/04/16 at 22:50; Stop 11/04/16 at 22:51 ; Status DC Fentanyl Citrate (Sublimaze Inj) 50 mcg ONCE ONCE IVPUSH Last administered on 11/05/16 06:56; Start 11/05/16 at 06:45; Stop 11/05/16 at 06:49; Status DC Bedside Blood Glucose: 267 Labs Test 11/04/16 08:30 11/04/16 14:20 11/05/16 08:57 Prothrombin Time 10.8sec (8.1-12.5) Prothromb Time International Ratio 1.01ratio Activated Partial Thromboplast Time 24.3sec (22.8-33.0) D-Dimer 39.0mg/L FEU (<0.50) Pro-B-Type Natriuretic Peptide 1725pg/mL (0-210) Procalcitonin 0.37ng/mL (0.00-0.08) White Blood Count 12.0th/mm3 (3.8-10.1) Red Blood Count 3.39mil/mm3 (4.40-5.80) Hemoglobin 11.3g/dL (13.8-17.2) Hematocrit 33.6% (41.0-50.0) Mean Corpuscular Volume 99.1fL (81-100) Mean Corpuscular Hemoglobin 33.3pg (27.0-35.0) Mean Corpuscular Hemoglobin Concent 33.6% (32.0-37.0) Red Cell Distribution Width 15.0% (12.3-15.4) Platelet Count 131bil/L (150-400) Neutrophils (%) (Auto) 72.4% (40-74) Lymphocytes (%) (Auto) 13.5% (14-46) Monocytes (%) (Auto) 10.6% (4-12) Eosinophils (%) (Auto) 1.1% (0-5) Basophils (%) (Auto) 0.2% (0-3) Sodium Level 138mEq/L (134-144) Potassium Level 5.3mEq/L (3.5-5.2) Chloride Level 108mEq/L (97-108) Carbon Dioxide Level 17mmol/L (18-29) Blood Urea Nitrogen 70mg/dL (8-27) Creatinine 2.01mg/dL (0.76-1.27) Estimat Glomerular Filtration Rate 36mL/min (>59) Glucose Level 137mg/dL (60-99) Calcium Level 9.1mg/dL (8.5-10.1) Phosphorus Level 4.8mg/dL (2.5-4.9) Magnesium Level 2.3mg/dL (1.6-2.6) Total Bilirubin 0.9mg/dL (0.0-1.2) Aspartate Amino Transf (AST/SGOT) 65U/L (0-50) Alanine Aminotransferase (ALT/SGPT) 117U/L (0-44) Alkaline Phosphatase 76U/L (25-160) Total Creatine Kinase 30U/L (21-232) Troponin T 0.011ug/L (0.0-0.011) Total Protein 5.6g/dL (6.4-8.4) Albumin 3.1g/dL (3.4-5.0) Plan Impression Patient chart reviewed, patient interviewed and anesthestic plan with risks, benefits, and alternatives discussed, and informed consent obtained. ASA Physical Status: ASA3 Severe Disease Anesthetic Plan: GA Bene/Risks/Altern/Consents: Yes HP Complete Prior to Induction: Yes Jessee England DO Nov 05, 2016 11:23
[2016-11-05] MEDS ORDERED: MetoCLOpramide 5 mg/mL 2 mL Inj IVPUSH PRN (13:05)
[2016-11-05] MEDS ORDERED: Labetalol 5 mg/mL 4 mL Inj IV PRN (13:05)
[2016-11-05] MEDS ORDERED: Atropine 0.4 mg/mL Inj IVPUSH PRN (13:05)
[2016-11-05] MEDS ORDERED: hydrALAZINE 20 mg/mL Inj IVPUSH PRN (13:05)
[2016-11-05] MEDS ORDERED: Dexamethasone 4 mg/mL Inj IVPUSH PRN (13:05)
[2016-11-05] MEDS ORDERED: EPHEDrine Sulfate 50 mg/mL Inj IVPUSH PRN (13:05)
[2016-11-05] MEDS ORDERED: fentaNYL-PF 50 mCg/mL 2 mL Inj IVPUSH PRN (13:05)
[2016-11-05] MEDS ORDERED: Phenylephrine 10,000 mCg/mL Inj IVPUSH PRN (13:05)
[2016-11-05] MEDS ORDERED: Ondansetron 2 mg/mL 2 mL Inj IVPUSH PRN ×2 (13:05→14:30)
[2016-11-05] MEDS ORDERED: Lactated Ringer's 1,000 ML IV ONE (13:20)
[2016-11-05] MEDS ORDERED: Ropivacaine-PF 0.5% 30 mL Inj INFILTRATE ONE (13:20)
[2016-11-05] MEDS ORDERED: diphenhydrAMINE 25 mg Capsule PO PRN (14:30)
[2016-11-05] MEDS ORDERED: HYDROmorphone 2 mg/mL Inj IVPUSH PRN (14:30)
[2016-11-05] MEDS ORDERED: Magnesium Hydroxide 10 mL Oral Concentration PO PRN (14:30)
[2016-11-05] MEDS ORDERED: Polyethylene Glycol (PEG) 17 Gm Powder PO PRN (14:30)
--- NOTE | 2016-11-05 14:36 | PCM.PNMED ---
Subjective Date of Service Nov 05, 2016 Subjective Mr. Yarbrough expressed frustration with his pain medication regimen wondering why he could not access his usual methadone and eat breakfast prior to surgery. The reasoning behind this was explained to him and he expressed understanding. He complains of intense left hip pain, to which morphine is only minimally effective, this is understandable in light of his longstanding opiate habituation and the extent of his trauma. He is otherwise at or near his baseline state of less than optimal health. Overnight the patient was transferred to [facility] in order to have more intensive medical management prior to his procedure. Comprehensive ROS negative except as outlined above. Exam Vital Signs Vital Sign - Last Date Time Temp Pulse Resp B/P Pulse Ox O2 Delivery O2 Flow Rate FiO2 11/05/16 10:44 83 11/05/16 08:40 18 95 Room Air 11/05/16 07:31 36.7 137/85 Intake and Output 11/04/16 11/04/16 11/05/16 Cumulative From/Thru 15:00 23:00 07:00 11/04/16 06:07 - 11/05/16 06:39 Intake Total 1017 ml 1017 ml Output Total 1650 ml 1650 ml Balance -633 ml -633 ml Intake Oral 600 ml 600 ml IV Total 417 ml 417 ml Output Urine Total 1650 ml 1650 ml # Voids 1 1 Exam Gen: A/O x3, male appearing older than stated age, in moderate acute distress secondary to pain Neck: Supple, non tender, no JVD, Full ROM HEENT: PERRL, EOMI, no scleral icterus, no conjunctival pallor, dry mucous membranes CV: RRR, no murmurs rubs or gallops Resp: Lungs CTA BL, prolonged expiratory phase, very mild diffuse wheezing, no rales or rhonchi Abd: Midline suprapubic scar with deep adjacent pit type scar consistent with history of bladder operations, soft, non tender, no organomegaly, BS slightly diminished 4Q Extr: No clubbing cyanosis or edema, multiple ecchymosis on BL UE, bruising about left greater trochanter. skin: deep depressions in the skin bilaterally on chest remnants of old port cath Neuro: CN 2-12 grossly intact, no focal neurologic deficit Psych: Patient agitated and somewhat belligerent with nursing and lab staff, refused AM lab draws until spoken to by doctor. IVs and Medications IV Fluids LR @ 120 ml hr Medications Reviewed: Medications were reviewed in detail Lab and Diagnostics Item Value Date Time Red Blood Count 3.39 mil/mm3 L 11/05/16 08 Mean Corpuscular Volume 99.1 fL 11/05/16856 Mean Corpuscular Hemoglobin 33.3 pg 11/05/16 08 Mean Corpuscular Hemoglobin Concent 33.6 % 11/05/16856 Red Cell Distribution Width 15.0 % 11/05/16 08 Platelet Count 131 varinder/L L 11/05/16 08 Neutrophils (%) (Auto) 72.4 % 11/05/16 08 Lymphocytes (%) (Auto) 13.5 % L 11/05/16 08 Monocytes (%) (Auto) 10.6 % 11/05/16 08 Eosinophils (%) (Auto) 1.1 % 11/05/16 08 Basophils (%) (Auto) 0.2 % 11/05/16 08 Estimat Glomerular Filtration Rate 36 mL/min 11/05/16 08 Calcium Level 9.1 mg/dL 11/05/16 0857 Phosphorus Level 4.8 mg/dL 11/05/16 0857 Magnesium Level 2.3 mg/dL 11/05/16 0857 Total Bilirubin 0.9 mg/dL 11/05/16 08 Aspartate Amino Transf (AST/SGOT) 65 U/L H 11/05/16 08 Alanine Aminotransferase (ALT/SGPT) 117 U/L H 11/05/16 08 Alkaline Phosphatase 76 U/L 11/05/16 08 Total Creatine Kinase 30 U/L 11/05/16 0857 Troponin T 0.011 ug/L 11/05/16 0857 Total Protein 5.6 g/dL L 11/05/16 08 Albumin 3.1 g/dL L 11/05/16 08 Result Diagram: 11/05/16 0811/05/16 08 X-Rays, CTs and MRIs X-RAY PELVIS W/LAT HIP (LT) IMPRESSION: Comminuted left intertrochanteric fracture Dictated by: Kuldeep Crook M.D. on 11/04/2016 at 8:30 Approved by: Kuldeep Crook M.D. on 11/04/2016 at 8:33 . 12-lead ECG sinus [id number] no RV strain pattern Cardiac Echo Impressions Interpretation Summary The study quality was technically difficult. The left ventricle is normal in size. The ejection fraction is estimated to be 35-40%. Base to mid septum appears to be akinetic. Anterior and the inferior wall not well visualized. [place] appears to be [place]. Compared to the prior exam, left ventricular function is significantly decreased. The right ventricle is grossly normal size. Right ventricular systolic function is mildly reduced. No significant valvular pathology seen. Mild atherosclerotic plaque(s) in the aortic arch. The IVC is of normal diameter and collapses greater than 50% with a sniff. This suggests a low right atrial pressure of 3 mm Hg. Reading Physician:PM . Assessment & Plan Zan Yarbrough is a 61 year old man with a PMH of bladder cancer s/p complete cystectomy with subsequent revision to bowel harvested bladder, advanced COPD with 40 pack year smoking history, and chronic pain on Methadone who presents after a GLF resulting in L trochanteric hip fracture. He was deemed a high risk surgical candidate so was transferred to the [facility] for medical optimization prior to surgery; risks and benefits of the procedure were explained to the patient who consented to the procedure and underwent ORIF by orthopedics on 11/05/16. Left hip intratrochanteric fracture, POA, acute. Active -Patient underwent orthopedic surgery 11/05/16 -Dr. Perales from cardiology has determined the patient to be intermediate to high risk of cardiac surgical complications -Patient was initially pain controlled with morphine, Methadone will be added in the post surgical period per his home dosing -Orthopedics will continue to follow this patient and we appreciate their input Sinus Tachycardia, POA, likely acute. Active -Likely secondary to pain and distress -Initial Trop positive at 0.019 now trended back to normal -D-Dimer positive, likely secondary to fracture, ECHO not indicative of any right heart strain, unlikely to be secondary to PE -Patient without chest pain or pain with deep inspiration FUNMILAYO on CKD, POA, acute on chronic. Active -Trending back towards normal, will re-evaluate in post surgical period -Avoiding nephrotoxic medications when possible -Will renally adjust dosage Chronic liver injury secondary to Hep C, POA, chronic. Active -Will continue to trend LFTs Chronic pain with opiate habituation, POA. Active -Patient in active due to pain from fracture, opiate habituation -Will re-initiate the patient's Methadone in post surgical period -Will allow for use of Morphine PRN for breakthrough pain -Naloxone PRN available Tobacco abuse disorder, POA, chronic. Active -Counseled on tobacco cessation -Nicotine patch Disposition: Patient will likely be able to DC in the next 2-3 days pending clearance by surgery, destination to be determined depending upon clinical recovery and PT. Pain Evaluation: Pain not Controlled (Patient will be resumed on home Methadone dosing with Morphine available for post opertive breakthrough pain) VTE Prophylaxis: Sub-Q Heparin (Unfractionated) Resuscitation Status: CPR: Attempt Resuscitation Attending Statement The patient was seen and examined together with Dr. Cabello on 11/05/16 and I have added additional information to the note above. Godwin Cabello DO Nov 05, 2016 14:36 Mckenna De Luna DO Nov 06, 2016 11:14
--- NOTE | 2016-11-05 14:45 | NUR ---
Social Work: Attempted Assessment D: COOKING INSTRUCTOR attempted to meet with patient at bedside to complete assessment. Pt currently off the floor at OR for hip repair. COOKING INSTRUCTOR will attempt to complete assessment when patient returns to the floor. A: Pt who lives in [place]. P: COOKING INSTRUCTOR to continue to attempt assessment with pt once returned to the floor. MANOJ Dotson
--- NOTE | 2016-11-05 14:57 | OP ---
[address] [address] OPERATIVE REPORT PATIENT: ANJELICA WARNER : 1955 MR#: [id number] ADMIT: 11/04/2016 JOB ID: [id number] DATE OF SURGERY: 11/05/2016 PREOPERATIVE DIAGNOSIS(ES): Left intertrochanteric hip fracture with subtrochanteric extension. POSTOPERATIVE DIAGNOSIS(ES): Left intertrochanteric hip fracture with subtrochanteric extension. PROCEDURE: Left hip long interlocked nailing. SURGEON: Saulo Palma DO ANESTHESIA: General. INDICATIONS: The patient is a 61-year-old male who fell at home, sustaining a left intertrochanteric hip fracture with comminution and subtrochanteric extension. We discussed treatment options for this and he wished to proceed with a left hip nailing. We discussed the risks, benefits, and possible complications of surgery. All questions were answered and he wished to proceed. He had a preoperative cardiac evaluation was determined to be at increased risk for complications. He had understanding of this and agreed to proceed with surgery. PROCEDURE IN DETAIL: The patient was brought to the operating room. He was given a preoperative antibiotic and general anesthetic and placed comfortably into the fracture table. The left hip was reduced with a combination of traction and internal rotation. The left hip was then sterilely prepped and draped. An incision was made about three fingerbreadths above the level of the greater trochanter in line with the femur. Dissection was carefully carried through the subcutaneous tissue. Electrocautery was used for hemostasis. A guidewire was then placed into the tip of the greater trochanter and, on the junction between the anterior 1/3 and posterior 2/3 on the lateral view, the guidewire was over-reamed for the opening reamer just slightly and then a guidewire was placed. However, this exited out through the fracture site and the Synthes finger was used to aid with reduction and passage of the wire. Using this, the guidewire was passed down into the shaft and then measured and felt to be a 400 mm nail and I elected to use a 125 degree angle. We over-reamed this and placed a Synthes 12 x 400 mm nail with 125 degree lag screw. This was impacted into position and the guide was used for lag screw insertion. An incision was made over the lateral femur. The guide was placed onto the lateral bone and advanced into the center-center position of the femoral head. This was reamed and then the lag screw was inserted. We used a 100 mm lag screw which had excellent purchase in the bone. This was further secured with a set screw from the top, backed off by 180 degrees, and then two distal locks were placed distally using the perfect upper mattaponi type technique, both of which had excellent purchase. The wounds were then irrigated and closed with 0 Vicryl to close the fascia, 2-0 to close the subcu. The skin was closed with corwin. Naropin was added as an adjunct to local anesthetic. Sterile dressings were applied. The patient tolerated the procedure well. BLOOD LOSS: Was 200 cc. POSTOPERATIVE PROTOCOL: Have the patient remain toe-touch weightbearing on the left lower extremity for a period of six weeks and follow up in the clinic in two weeks for staple removal. Plan to use Lovenox for DVT prophylaxis for 21 days.
--- NOTE | 2016-11-05 15:09 | DRSVH ---
PROCEDURE: X-RAY CHEST ONE VIEW, PORTABLE ([id number]) INDICATIONS: central line placement TECHNIQUE: One view of the chest was acquired. COMPARISON: None. FINDINGS: Surgical changes and devices: Leads are seen over the chest. Oxygen tubing is present. There is a rig ht internal jugular central line is in tip of the central line is at the level of the azygos vein. Lungs and pleura: No pleural effusions or pneumothorax. Lungs are clear. Mediastinum: Mediastinal contours appear normal. Heart size is normal. Bones and chest wall: No suspicious bony lesions. Overlying soft tissues appear unremarkable. IMPRESSION: Central line appears in appropriate position radiographically. No acute disease is seen in the chest. Dictated by: Yahir Carolina M.D. on 11/05/2016 at 15:06 Approved by: Yahir Carolina M.D. on 11/05/2016 at 15:07
[2016-11-05] MEDS: 0.9% Sodium Chloride 1,000 ML IV SCH ×2 (15:27)
--- NOTE | 2016-11-05 16:03 | NUR ---
Post surgery: Patient returned to unit at 1510. A&O to self and place, drowsy, speech delayed and slurred. Reports pain 7/10 to L hip. Dressings to L hip and L Knee C/D/I. Pedal pulses to L foot palpable, extremity is warm to touch and patient denies any numbness/tingling to L foot. Tele: Sinus 80-90's. Denies CP. SpO2: mid 90's on RA. VSS.
--- NOTE | 2016-11-05 16:09 | PCM.ANEP1 ---
Post Anesthesia PACU Phase 1 Assessment Vital Signs Vital Signs Date Time Temp Pulse Resp B/P Pulse Ox O2 Delivery O2 Flow Rate FiO2 11/05/16 15:13 36.3 85 16 131/84 94 Room Air 11/05/16 15:00 83 14 114/74 95 Room Air 11/05/16 14:55 83 15 125/83 96 Room Air 11/05/16 14:50 84 14 125/79 97 Room Air 11/05/16 14:45 37.2 84 18 133/82 99 Room Air 11/05/16 14:40 87 17 112/86 99 Room Air 11/05/16 14:35 84 19 114/73 98 Room Air 11/05/16 14:30 85 15 132/90 100 Simple Mask 8 11/05/16 14:25 85 12 137/80 100 Simple Mask 8 11/05/16 14:20 35.7 80 9 120/83 100 Simple Mask 8 11/05/16 10:44 83 11/05/16 08:40 70 18 95 Room Air Anesthetic Administered: GA Level of Alertness: Drowsy, not talking ELIZABETH's with Equal Strength: Yes Pain: Yes Pain Scale Score: 10 Nausea or Vomiting: No CV Function & Hydration Stable: Yes Airway Device: Oxygen Delivery: Simple Mask Lungs: Clear to Auscultation PACU Phase 2 Assessment Complications: No Follow up Care: No Patient Instructions Provided: Yes Jessee England DO Nov 05, 2016 16:09
[2016-11-05] MEDS: Sodium Chloride LOK Flush 10 mL Syringe IV SCH (16:30)
--- NOTE | 2016-11-05 17:19 | NUR ---
Pain: P: patient reported 8/10 pain to L hip I: Scheduled Methadone 5mg PO was administered and patient stated this would not work and requested Methadone dose to be increased to 10mg and also requested IV pain medication. E: Patient reported 8/10 pain 10 minutes after Methadone was given. Pt appears to be drowsy, speech is mumbled and slurred. Pt requested additional pain medication. Morphine 1mg IVP was administered and Dr Cabello was notified of patients request for additional pain medication.
--- NOTE | 2016-11-05 18:46 | NUR ---
Transfer to [facility]: Report given to Marylin Brandt RN. Patient transferred to room 1028 via patient bed with remote telemetry. A&O X3 and in stable condition. Patient sister Slime notified of transfer.
[2016-11-05] MEDS: CeFAZolin Inj 2 GM in IV Premix 1 EACH IV SCH (22:03)
[2016-11-05] MEDS: Senna-Docusate 8.6-50 mg Tablet PO SCH (22:06)
[2016-11-06] VITALS (13 sets, daily range): BP systolic 94–123; BP diastolic 60–89; PULSE 88–105; RESP 16–20; O2SAT 92–100
[2016-11-06] MEDS: Albuterol-Ipratropium 3 mL Inhalation Solution NEB SCH ×6 (00:15→20:13)
[2016-11-06] MEDS: Sodium Chloride LOK Flush 10 mL Syringe IV SCH ×3 (00:30→17:06)
[2016-11-06] MEDS: Heparin 5,000 Unit/mL Inj SUBQ SCH (00:57)
[2016-11-06] MEDS ORDERED: Lidocaine 2% 5 mL Topical Jelly TOPICAL ONE (03:10)
[2016-11-06 04:27] LABS: BASOPHILS % (AUTO) 0.1 % (0-3); EOSINOPHILS % (AUTO) 1.2 % (0-5); MONOCYTES % (AUTO) 9.7 % (4-12); Mean Corpuscular Hemoglobin 33.8 pg (27.0-35.0); Mean Corpuscular Volume 105.9 fL (81-100); Platelet Count 102 bil/L (150-400)
[2016-11-06 04:47] LABS: Phosphorus 4.5 mg/dL (2.5-4.9)
--- NOTE | 2016-11-06 04:51 | NUR ---
Urinary Retention/Pain Pt in pain, requesting medication increase to 60mg methadone and dilauded in addition to morphine- Per contract and specific note from doctor no additions to pain medications at this time. Given PRN morphine/Oxy/APAP as available this shift with poor control. Upon start of shift alejandro has had no output for 2 hours. Monitored for output, bladder scan shows 600cc with no relief from repositioning of catheter tube. Ad POD1 Alejandro is DC'd, pt is void trialed, sits at edge of bed and voided 100 cc, scan shows >999. No further output in 4 hr post alejandro DC. Orders rec'd to replace alejandro using Xylocaine jelly. At 0445 alejandro replaced and output of 800 lily urine with mucus threads; threads are normal per small bowel tissue used for kaia bladder. Care continues
[2016-11-06 05:02] LABS: INR 1.04 ratio
[2016-11-06] MEDS: CeFAZolin Inj 2 GM in IV Premix 1 EACH IV SCH (05:42)
[2016-11-06] MEDS: 0.9% Sodium Chloride 1,000 ML IV SCH ×2 (05:42→10:30)
[2016-11-06] MEDS: Senna-Docusate 8.6-50 mg Tablet PO SCH ×2 (09:05→21:05)
[2016-11-06] MEDS: MeTOProlol XL 25 mg ER24 Tablet PO SCH ×2 (09:05→20:30)
--- NOTE | 2016-11-06 10:10 | NUR ---
NED signed by pt at bedside
[2016-11-06] MEDS: oxyCODONE-Acetamin 10-325 mg Tablet PO PRN ×3 (11:56→21:06)
--- NOTE | 2016-11-06 12:38 | PROG NOTE ---
[address] [address] PROGRESS NOTE PATIENT: ANJELICA WARNER : 1955 MR#: [id number] ADMIT: 11/04/2016 JOB ID: [id number] DATE: 11/06/2016 SUBJECTIVE: The patient underwent left hip surgery yesterday. Without any complication he had surgery. He denies any active chest pain or worsening shortness of breath, PND, or orthopnea. No cardiovascular symptoms. OBJECTIVE: Blood pressure 123/77, heart rate 89, respiratory rate 18, oxygen saturation 98% to 99%. Neck: No apparent JVP. Chest: Decreased air entry at the bases. CVS: No S3, no S4. No new murmur. Abdomen: No obvious pulsatile mass. Extremity: Left hip area has dressing. Mild pedal edema. Vascular: No evidence of critical limb ischemia. Telemetry: Mostly sinus rhythm. 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 LABORATORY: Sodium 139, potassium 5.1, BUN 61, creatinine 1.85. AST 56, ALT 67. Yesterday creatinine was 2.01. WBC 12.3. Hemoglobin 8, yesterday hemoglobin was 11.3. Platelets 102, yesterday platelets was 131. ASSESSMENT/PLAN: Left ventricular dysfunction with left ventricular (LV) ejection fraction 35% to 40% with possibility of ischemic cardiomyopathy without any acute coronary syndrome in the hospital, known history of right carotid artery stenting, peripheral artery disease, hypertension, hyperlipidemia, severe COPD, underlying emphysema, chronic hepatitis C, chronic renal insufficiency, mild hyperkalemia, history of left hip subtrochanteric fracture status post surgery yesterday. The patient is getting IV fluid about 150 cc. At this point of time he is eating and drinking orally. Will stop IV fluid. At present he is not in gross congestive heart failure. His hemoglobin dropped after hip surgery. He denies any active bleeding. May be dilutional. His platelets has decreased as well. Further workup and management of anemia and thrombocytopenia I will leave up to the hospitalist team. From Cardiology perspective, at this point of time he is on tolerable dose of beta kitty, statin, and aspirin. We will recommend to be continued unless there is absolute contraindication. Because of acute renal insufficiency he is not on WILLIAM inhibitor. His creatinine is getting better. The patient will need an ischemic evaluation later on. Once he completely recovered from surgery will recommend at least pharmacological perfusion study for CAD diagnosis and risk stratification. In absence of WILLIAM inhibitor, down the road consider a combination of isosorbide and hydralazine. Discussed with the patient. He agrees and concurs. At present, Cardiology service will sign off. Recommend followup as an outpatient. Tomorrow my associate, Dr. Garcia, will be available. Feel free to call us if needs further assistance. TIME: Total time spent about 35 minutes.
--- NOTE | 2016-11-06 12:49 | PROG NOTE ---
[address] [address] PROGRESS NOTE PATIENT: ANJELICA WARNER : 1955 MR#: [id number] ADMIT: 11/04/2016 JOB ID: [id number] DATE: 11/06/2016 SUBJECTIVE: Patient is seen and examined. Doing well. No chest pain, no shortness of breath. Complains of left hip pain with attempted movement in bed. He is comfortable at rest. OBJECTIVE: Blood pressure 123/77, pulse rate 89, respirations 20, temperature 36.7. He is alert and cooperative, in no acute distress. Left hip surgical dressings are clean, dry, and intact. He is able move his toes. His left foot is warm, pink, and well perfused, with dorsalis pedis pulse +1. No calf pain or tenderness. LABORATORY: Hemoglobin 8.0. ASSESSMENT: Status post left hip long nail. Postop day number one. PLAN: I will have the patient remain toe-touch weightbearing on the left lower extremity for a period of 4-6 weeks and continue on Lovenox for 21 days postoperatively. I have added Percocet 10/325 one pill q.4 hours p.r.n. pain, to add with pain control so that he can get up and work with physical therapy and rehab. We discussed that he will likely need a rehab facility for discharge and he would prefer [facility] in [place] if possible.
--- NOTE | 2016-11-06 14:51 | PCM.PNMED ---
Subjective Date of Service Nov 06, 2016 Subjective Complains of pain and refusing to sit at edge of the bed with physical therapy Exam Vital Signs Vital Sign - Last Date Time Temp Pulse Resp B/P Pulse Ox O2 Delivery O2 Flow Rate FiO2 11/06/16 14:38 36.7 98 16 110/75 92 Room Air 11/06/16 08:25 3.00 Intake and Output 11/05/16 11/05/16 11/06/16 Cumulative From/Thru 15:00 23:00 07:00 11/04/16 06:07 - 11/06/16 06:11 Intake Total 800 ml 1000 ml 1855 ml 4672 ml Output Total 400 ml 850 ml 2900 ml Balance 800 ml 600 ml 1005 ml 1772 ml Intake Oral 800 ml 715 ml 2115 ml IV Total 800 ml 200 ml 1140 ml 2557 ml Output Urine Total 400 ml 850 ml 2900 ml # Voids 1 # Bowel Movements 0 0 Exam General: Alert and oriented, no acute distress Heart: Regular Lungs: Clear Abdomen: Soft, non-tender Extremities: No pedal edema IVs and Medications Medications Reviewed: Medications were reviewed in detail Lab and Diagnostics Result Diagram: 11/06/16 0415 11/06/16 0415 X-Rays, CTs and MRIs X-RAY PELVIS W/LAT HIP (LT) IMPRESSION: Comminuted left intertrochanteric fracture Dictated by: Kuldeep Crook M.D. on 11/04/2016 at 8:30 Approved by: Kuldeep Crook M.D. on 11/04/2016 at 8:33 . 12-lead ECG sinus [id number] no RV strain pattern Cardiac Echo Impressions Interpretation Summary The study quality was technically difficult. The left ventricle is normal in size. The ejection fraction is estimated to be 35-40%. Base to mid septum appears to be akinetic. Anterior and the inferior wall not well visualized. [place] appears to be ellen [place]. Compared to the prior exam, left ventricular function is significantly decreased. The right ventricle is grossly normal size. Right ventricular systolic function is mildly reduced. No significant valvular pathology seen. Mild atherosclerotic plaque(s) in the aortic arch. The IVC is of normal diameter and collapses greater than 50% with a sniff. This suggests a low right atrial pressure of 3 mm Hg. Reading Physician:PM . Assessment & Plan Zan Yarbrough is a 61 year old man with a PMH of bladder cancer s/p complete cystectomy with subsequent revision to bowel harvested bladder, advanced COPD with 40 pack year smoking history, and chronic pain on Methadone who presents after a GLF resulting in L trochanteric hip fracture. He was deemed a high risk surgical candidate so was transferred to the [facility] for medical optimization prior to surgery; risks and benefits of the procedure were explained to the patient who consented to the procedure and underwent ORIF by orthopedics on 11/05/16. Left hip intratrochanteric fracture, POA, acute. Active -Patient underwent orthopedic surgery 11/05/16 -Dr. Perales from cardiology has determined the patient to be intermediate to high risk of cardiac surgical complications -Patient was initially pain controlled with morphine, Methadone will be added in the post surgical period per his home dosing -Orthopedics will continue to follow this patient and we appreciate their input Acute anemia, presumed blood loss related to surgery - Hemoglobin has dropped from 11.3 yesterday morning to 8.0 this morning - We will recheck this afternoon and again in the morning Sinus Tachycardia, POA, likely acute, resolved -Likely secondary to pain and distress -Initial Trop positive at 0.019 now trended back to normal -D-Dimer positive, likely secondary to fracture, ECHO not indicative of any right heart strain, unlikely to be secondary to PE -Patient without chest pain or pain with deep inspiration Chronic Systolic CHF Per cardiology today: Left ventricular dysfunction with left ventricular (LV) ejection fraction 35% to 40% with possibility of ischemic cardiomyopathy without any acute coronary syndrome in the hospital. Recommend stop IV fluid. he is on tolerable dose of beta kitty, statin, and aspirin. We will recommend to be continued unless there is absolute contraindication. Because of acute renal insufficiency he is not on WILLIAM inhibitor. His creatinine is getting better. The patient will need an ischemic evaluation later on. Once he completely recovered from surgery will recommend at least pharmacological perfusion study for CAD diagnosis and risk stratification. In absence of WILLIAM inhibitor, down the road consider a combination of isosorbide and hydralazine. FUNMILAYO on CKD, POA, acute on chronic. Active -Trending back towards normal (2.5 to 2.01 to 1.85 this morning), will re- evaluate in post surgical period -Avoiding nephrotoxic medications when possible -Will renally adjust dosage Urinary Retention, hx bladder cancer s/p complete cystectomy with subsequent revision to bowel harvested bladder - alejandro placed today (with difficulty) and 800 cc urine obtained - will discuss with urology tomorrow (consult in hosp or as outpatient? if outpatient leave alejandro in place at discharge?) Chronic liver injury secondary to Hep C, POA, chronic. Active -Will continue to trend LFTs, some improved today Chronic pain with opiate habituation, POA. Active -Patient in active due to pain from fracture, opiate habituation -Will re-initiate the patient's Methadone in post surgical period -Will allow for use of Morphine PRN for breakthrough pain -Naloxone PRN available Tobacco abuse disorder, POA, chronic. Active -Counseled on tobacco cessation -Nicotine patch Disposition: Patient will likely be able to DC in the next 2-3 days pending clearance by surgery, destination to be determined depending upon clinical recovery and PT. VTE Prophylaxis: Sub-Q Heparin (Unfractionated) VTE Mechanical Devices: Intermittant Pneumatic CD Resuscitation Status: CPR: Attempt Resuscitation Betty Melo MD Nov 06, 2016 14:51
--- NOTE | 2016-11-06 15:19 | NUR ---
Social Work: Initial Assessment D: EMR reviewed. Pt is a 61 y/o male admitted for left hip fracture per H&P. SW met with pt at bedside to conduct initial assessment. Pt was alert and oriented x3. SW explained role and wrote phone number on white board. Pt declined DPOA/advanced directive ppw and any further information. Pt gave verbal consent to contact CARLYLE caregiver Cipriano ([phone]). Pt's insurance is Medicare and [facility]. Pt's PCP is Dane Espino MD. Pt has hx with [facility]. [place] [facility] [place] [facility]. Pt stated if he had to go to SNF, he would want [facility]. Pt needs assistance with some ADLs including meal prep and transportation. Pt states he is independent with other ADLs. Pt uses a seated walker to ambulate. Pt does not own or use any other DME. Pt states he has a CARLYLE caregiver assigned for the maximum amount allowable. Pt states CM is Kasey Thompson ([phone]). Pt lives in a single-story home alone in [place] with 3 steps to enter. Pt states he does not have any NOK in the area but he has a sister named Sada Sparks ([phone]) in [place]. Pt did not give consent to contact sister. Pt states that his caregiver Cipriano will provide transport home if MD decides pt is medically stable to go home. Pt stated he understands he may need to go to a SNF for rehab. SW will await MD orders prior to discussing SNF with pt. Pt states he is currently open with [facility] RN PT 2x/week. SW will contact [facility] to confirm and update note. SW will also contact CM and confirm CARLYLE hours. SW placed T/C to caregiver Cipriano and left voicemail. SW will continue to follow for needs. A: Pt who has a CARLYLE caregiver and possible HH through [facility] for RN and PT 2x/week (AMADOU will confirm and update note) P: AMADOU will contact CM, caregiver, and [facility] to confirm care at baseline. AMADOU anticipates pt may need SNF or other rehabilitation for hip fracture. AMADOU will continue to follow pt and discuss needs with MD. SW will await MD order to coordinate discharge care plan. AMADOU will continue to follow for needs. MANOJ Givens Addendum: 11/06/16 at 1528 by RADAMES CORRALES Amended: Links added.
--- NOTE | 2016-11-06 15:23 | NUR ---
Evaluation completed. Please go to "Notes" then click on "Assessments and Notes" (bottom left corner of screen). Then select appropriate discipline tab on top of screen.
[2016-11-06 15:54] LABS: Mean Corpuscular Hemoglobin 33.3 pg (27.0-35.0); Mean Corpuscular Volume 104.6 fL (81-100)
--- NOTE | 2016-11-06 17:45 | NUR ---
Pain / Mobility Pt reluctant to move his leg due to pain. Did not want to cooperate with PT this a.m.; spoke with pt and supported his left leg in order to have him sit up at the side of the bed. Pt yelled out in pain when we moved him. Explained to pt that he has to start moving even though it hurts. Advised that we would give him as much pain medication as possible prior to PT so that he would be able to cooperate. Pt understood. Pt was able to sit at the side of the bed again during the p.m. PT session. Therapist reported that he moved a "little" bit better. Encouraged pt to keep moving his feet and legs while in bed and to try to stand during PT tomorrow.
[2016-11-07] VITALS (8 sets, daily range): BP systolic 105–125; BP diastolic 66–82; PULSE 81–110; RESP 16–18; O2SAT 90–96
[2016-11-07] MEDS: Sodium Chloride LOK Flush 10 mL Syringe IV SCH ×3 (00:30→16:30)
[2016-11-07] MEDS: Albuterol-Ipratropium 3 mL Inhalation Solution NEB SCH ×5 (00:32→19:41)
[2016-11-07] MEDS: oxyCODONE-Acetamin 10-325 mg Tablet PO PRN ×2 (04:38→12:13)
[2016-11-07 05:12] LABS: BASOPHILS % (AUTO) 0.1 % (0-3); MONOCYTES % (AUTO) 9.8 % (4-12); Mean Corpuscular Hemoglobin 33.9 pg (27.0-35.0); Mean Corpuscular Volume 106.4 fL (81-100); NEUTROPHILS % (AUTO) 67.4 % (40-74); Platelet Count 85 bil/L (150-400)
--- NOTE | 2016-11-07 07:12 | NUR ---
Pain Decreased Patient is reporting pain 5/10 and well managed with scheduled methadone and percocet PO, one dose of IV morphine given this shift. Patient reminded that he will need to be active with therapy today. Yoder is patent and draining yellow urine with mucus threads, >800 cc this shift. HR and BP monitored, caffiene restricted per MD order. SAO2 drops <90 while pt sleeping, he does not complain of SOB. Breathing treatments scheduled. No chest pain. CSM intact to BLE. Care continues
--- NOTE | 2016-11-07 10:16 | PCM.PNMED ---
Subjective Date of Service Nov 07, 2016 Subjective Denies any lightheadedness, chest pain, or shortness of breath. Exam Vital Signs Vital Sign - Last Date Time Temp Pulse Resp B/P Pulse Ox O2 Delivery O2 Flow Rate FiO2 11/07/16 08:57 95 16 92 Room Air 11/07/16 03:39 36.6 105/66 11/06/16 08:25 3.00 Intake and Output 11/06/16 11/06/16 11/07/16 Cumulative From/Thru 15:00 23:00 07:00 11/04/16 06:07 - 11/07/16 03:39 Intake Total 435 ml 650 ml 5757 ml Output Total 700 ml 3600 ml Balance 435 ml -50 ml 2157 ml Intake Oral 2115 ml IV Total 435 ml 650 ml 3642 ml Output Urine Total 700 ml 3600 ml # Voids 1 # Bowel Movements 0 Exam General: Alert and oriented, no acute distress Heart: Regular Lungs: Clear anteriorly and laterally Abdomen: Soft, non-tender Extremities: No pedal edema IVs and Medications Medications Reviewed: Medications were reviewed in detail Lab and Diagnostics Result Diagram: 11/07/16 0500 11/07/16 0500 X-Rays, CTs and MRIs X-RAY PELVIS W/LAT HIP (LT) IMPRESSION: Comminuted left intertrochanteric fracture Dictated by: Kuldeep Crook M.D. on 11/04/2016 at 8:30 Approved by: Kuldeep Crook M.D. on 11/04/2016 at 8:33 . 12-lead ECG sinus [id number] no RV strain pattern Cardiac Echo Impressions Interpretation Summary The study quality was technically difficult. The left ventricle is normal in size. The ejection fraction is estimated to be 35-40%. Base to mid septum appears to be akinetic. Anterior and the inferior wall not well visualized. [place] appears to be ellen [place]. Compared to the prior exam, left ventricular function is significantly decreased. The right ventricle is grossly normal size. Right ventricular systolic function is mildly reduced. No significant valvular pathology seen. Mild atherosclerotic plaque(s) in the aortic arch. The IVC is of normal diameter and collapses greater than 50% with a sniff. This suggests a low right atrial pressure of 3 mm Hg. Reading Physician:PM . Assessment & Plan Zan Yarbrough is a 61 year old man with a PMH of bladder cancer s/p complete cystectomy with subsequent revision to bowel harvested bladder, advanced COPD with 40 pack year smoking history, and chronic pain on Methadone who presents after a GLF resulting in L trochanteric hip fracture. He was deemed a high risk surgical candidate so was transferred to the [facility] for medical optimization prior to surgery; risks and benefits of the procedure were explained to the patient who consented to the procedure and underwent ORIF by orthopedics on 11/05/16. Left hip intratrochanteric fracture, POA, acute. Active -Patient underwent orthopedic surgery 11/05/16 -Dr. Perales from cardiology has determined the patient to be intermediate to high risk of cardiac surgical complications -Patient was initially pain controlled with morphine, Methadone will be added in the post surgical period per his home dosing -Orthopedics will continue to follow this patient and we appreciate their input Acute anemia, presumed due blood loss related to surgery and fracture - Hemoglobin has dropped from 11.3 November 05 morning to 8.0 November 06 morning and 7.4 this am - does have sig cardiac disease but is assymptomatic and somewhat reluctant to receive transfusion - We will recheck this afternoon and again in the morning Chronic Systolic CHF Per cardiology Jue 18: Left ventricular dysfunction with left ventricular (LV) ejection fraction 35% to 40% with possibility of ischemic cardiomyopathy without any acute coronary syndrome in the hospital. Recommend stop IV fluid. he is on tolerable dose of beta kitty, statin, and aspirin. We will recommend to be continued unless there is absolute contraindication. Because of acute renal insufficiency he is not on WILLIAM inhibitor. His creatinine is getting better. The patient will need an ischemic evaluation later on. Once he completely recovered from surgery will recommend at least pharmacological perfusion study for CAD diagnosis and risk stratification. In absence of WILLIAM inhibitor, down the road consider a combination of isosorbide and hydralazine. FUNMILAYO on CKD, POA, acute on chronic. Active -Trending back towards normal (2.5 to 2.01 to 1.85 to 1.62 this morning) -Avoiding nephrotoxic medications when possible -Will renally adjust dosage Urinary Retention, hx bladder cancer s/p complete cystectomy with subsequent revision to bowel harvested bladder - alejandro placed November 06 (with difficulty) and 800 cc urine obtained - he has not seen a urologist recently and does not recall the name of his past urologist - discuss with Dr Naranjo who is communications engineering technician for urology today, he recommends leave alejandro in until pt is ambulating then remove and access ability to void - 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 Active -Will continue to trend LFTs, recheck tomorrow Chronic pain with opiate habituation, POA. Active -Patient in active due to pain from fracture, opiate habituation -Will re-initiate the patient's Methadone in post surgical period -Will allow for use of Morphine PRN for breakthrough pain -Naloxone PRN available Tobacco abuse disorder, POA, chronic. Active -Counseled on tobacco cessation -Nicotine patch Disposition: Patient will likely be able to DC in the next 1-2 days pending clearance by surgery, destination to be determined depending upon clinical recovery and PT. VTE Prophylaxis: Sub-Q Heparin (Unfractionated) VTE Mechanical Devices: Intermittant Pneumatic CD Resuscitation Status: CPR: Attempt Resuscitation Betty Melo MD Nov 07, 2016 10:16
--- NOTE | 2016-11-07 10:37 | PCM.PNORTH ---
Subjective Date of Service: Nov 07, 2016 Visit Information: Reason for Visit Left Hip Fx Surgery/Surgery Date left hip IM nail 11/05/2016 Post-Op Day # 2 Date of Admission: Nov 04, 2016 at 10:42 Hospital Day # Subjective Patient is lying in bed of his eyes closed. He responds verbally to questioning , but does not wish to be touched or moved in any way. He states "I am resting right now". He sat at edge of bed with physical therapy yesterday. He has not yet been out of bed Postop General: No Shortness of Breath, No Chest Pain Pain Management: PO, IV Push Objective Exam Objective Patient is seen lying in bed Vital Signs and I/O Vital Sign - Last Date Time Temp Pulse Resp B/P Pulse Ox O2 Delivery O2 Flow Rate FiO2 11/07/16 08:57 95 16 92 Room Air 11/07/16 03:39 36.6 105/66 11/06/16 08:25 3.00 Intake and Output 11/06/16 11/06/16 11/07/16 Cumulative From/Thru 15:00 23:00 07:00 11/04/16 06:07 - 11/07/16 03:39 Intake Total 435 ml 650 ml 5757 ml Output Total 700 ml 3600 ml Balance 435 ml -50 ml 2157 ml Intake Oral 2115 ml IV Total 435 ml 650 ml 3642 ml Output Urine Total 700 ml 3600 ml # Voids 1 # Bowel Movements 0 Lab & Micro Results Laboratory Tests Test 11/06/16 15:45 11/07/16 05:00 White Blood Count 13.0th/mm3 (3.8-10.1) 9.6th/mm3 (3.8-10.1) Red Blood Count 2.37mil/mm3 (4.40-5.80) 2.18mil/mm3 (4.40-5.80) Hemoglobin 7.9g/dL (13.8-17.2) 7.4g/dL (13.8-17.2) Hematocrit 24.8% (41.0-50.0) 23.2% (41.0-50.0) Mean Corpuscular Volume 104.6fL (81-100) 106.4fL (81-100) Mean Corpuscular Hemoglobin 33.3pg (27.0-35.0) 33.9pg (27.0-35.0) Mean Corpuscular Hemoglobin Concent 31.9% (32.0-37.0) 31.9% (32.0-37.0) Red Cell Distribution Width 16.3% (12.3-15.4) 16.5% (12.3-15.4) Platelet Count 100bil/L (150-400) 85bil/L (150-400) Neutrophils (%) (Auto) 67.4% (40-74) Lymphocytes (%) (Auto) 17.3% (14-46) Monocytes (%) (Auto) 9.8% (4-12) Eosinophils (%) (Auto) 3.0% (0-5) Basophils (%) (Auto) 0.1% (0-3) Sodium Level 141mEq/L (134-144) Potassium Level 4.6mEq/L (3.5-5.2) Chloride Level 111mEq/L (97-108) Carbon Dioxide Level 19mmol/L (18-29) Blood Urea Nitrogen 46mg/dL (8-27) Creatinine 1.62mg/dL (0.76-1.27) Estimat Glomerular Filtration Rate 46mL/min (>59) Glucose Level 167mg/dL (60-99) Calcium Level 8.2mg/dL (8.5-10.1) Result Diagram: 11/07/16 0500 11/07/16 0500 General Appearance: Alert, Oriented X3, Cooperative, No Acute Distress Extremities: Distal Pulses Palpable, No Compartment Syndrom Noted, Thigh & Calf Soft/Nontender Postop Sensory Motor: Distal Motor Intact, NVI Distally SURGICAL WOUND : Wound Location/Description Left lateral leg: Surgical dressings are intact. They are clean and dry. Negative for erythema. There is swelling of the thigh, as expected. Incision General Appearance: No Direct Observation Activity: Activity per PT Catheters: None Assessment & Plan Impression POD #2 left hip IM nailing Problems: Plan Weightbearing: Toe-touch weightbearing 6 weeks DVT prophylaxis: Lovenox 40 mg subcutaneous 3 weeks followed by aspirin 325 mg twice a day 3 weeks Physical therapy for transfers, progressive ambulation, therapeutic exercise Wound care: Discharge plan: Discharge to SNF when medically stable Follow-up plan: In 2 weeks at [facility] with REGINO for wound check and at [address] Palma with x-rays Pain Management: Morphine sulfate, Percocet 10/325, methadone 5 mg 4 times a day, Tylenol VTE Prophylaxis: Sub-Q Heparin (Unfractionated), SCDs, Other (aspirin 81 mg) Resuscitation Status: CPR: Attempt Resuscitation Rina Tineo PA-C Nov 07, 2016 10:37
[2016-11-07] MEDS: Senna-Docusate 8.6-50 mg Tablet PO SCH ×2 (12:08→21:17)
[2016-11-07] MEDS: MeTOProlol XL 25 mg ER24 Tablet PO SCH ×2 (12:08→21:17)
[2016-11-07 12:31] LABS: Mean Corpuscular Hemoglobin 32.9 pg (27.0-35.0); Mean Corpuscular Volume 104.7 fL (81-100)
--- NOTE | 2016-11-07 14:51 | NUR ---
Social Work: Continued Discharge Planning D: EMR reviewed. Pt is on day 3 of hospitalization. RN told SW that pt refused PT twice today because of pain. SW met with pt to discuss why PT is important and how SW can determine care plan at discharge based on pt's work with PT. Pt stated he wants to work with PT now and is willing to go to SNF if necessary. SW received order for pt to go to SNF. PT recommends pt go to SNF via cabulance. SW met with pt and provided choicelist. Pt chose [facility]. SW placed T/C to Prosper at [facility] and referred pt. SW provided access. [facility] will contact SW regarding pt once they have reviewed pt's EMR. SW notified PT of pt's willingness to work with PT. PT stated they will attempt to see pt tomorrow morning. A: Pt for whom a SNF via cabulance has been deemed medically necessary. P: SW placed referral to [facility] and provided access. Pt states he is only willing to go if necessary. AMADOU confirmed that MD and PT both recommend pt's discharge to SNF. Pt is agreeable to SNF at this time. SW will update note once [facility] reaches decision. MANOJ Givens
[2016-11-07] MEDS ORDERED: Sodium Chloride LOK Flush 10 mL Syringe IVFLUSH PRN ×2 (16:05)
--- NOTE | 2016-11-07 17:57 | NUR ---
Pain/activity Patient reported 8/10 leg/hip pain this shift. 5mg scheduled methadone given. Patient given 1 tab of Percocet 10-325 this AM but refused Percocet this afternoon, was given 10mg of oxycodone. Patient refused to work with PT this shift. Patient allowed LEGAL SERVICE SPECIALIST to reposition to right side once this shift. Denies nausea. Call light and tray table within reach. Will continue to monitor patient hourly.
[2016-11-08] MEDS: Sodium Chloride LOK Flush 10 mL Syringe IV SCH ×2 (02:00→10:30)
--- NOTE | 2016-11-08 03:51 | NUR ---
Pain/Mobility Patient reported 5-7/10 leg/hip pain this shift. 5mg scheduled methadone and PRN 1Omg oxycodone given. post pain med.administration pt reported pain 4-7 for which 4 is tolerable for him. pt sat at the edge of the bed and dangle x1. pt on CPOX and 2L O2 via NC while asleep. O2 sat in mid 90s. Dressing C/D/I. C/M/S intact. will continue to monitor and provide care.
[2016-11-08 04:59] LABS: Mean Corpuscular Hemoglobin 34.1 pg (27.0-35.0); Mean Corpuscular Volume 109.1 fL (81-100)
[2016-11-08 07:16] VITALS: BP 129/80; PULSE 89; RESP 16; O2SAT 95
[2016-11-08] MEDS: oxyCODONE-Acetamin 10-325 mg Tablet PO PRN ×2 (08:37→13:51)
[2016-11-08] MEDS: Albuterol-Ipratropium 3 mL Inhalation Solution NEB SCH ×2 (09:02→14:46)
[2016-11-08 09:04] VITALS: PULSE 80; RESP 18; O2SAT 98
--- NOTE | 2016-11-08 09:36 | PCM.PNORTH ---
Subjective Date of Service: Nov 08, 2016 Visit Information: Reason for Visit Left Hip Fx Surgery/Surgery Date Post-Op Day # 3 Date of Admission: Nov 04, 2016 at 10:42 Hospital Day # Subjective Patient states he is feeling "pretty good" today and states his pain is "bearable." He states he has been able to stand up with physical therapy and is pleased with his progress thus far. Postop General: No Shortness of Breath, No Chest Pain Pain Management: PO, IV Push Objective Exam Objective Patient sitting up in bed eating breakfast Vital Signs and I/O Vital Sign - Last Date Time Temp Pulse Resp B/P Pulse Ox O2 Delivery O2 Flow Rate FiO2 11/08/16 09:04 80 18 98 Nasal Cannula 2.00 11/08/16 07:16 36.7 129/80 Intake and Output 11/07/16 11/07/16 11/08/16 Cumulative From/Thru 15:00 23:00 07:00 11/04/16 06:07 - 11/07/16 18:27 Intake Total 965 ml 6722 ml Output Total 350 ml 3950 ml Balance 615 ml 2772 ml Intake Oral 965 ml 3080 ml IV Total 3642 ml Output Urine Total 350 ml 3950 ml # Voids 1 # Bowel Movements 0 Lab & Micro Results Laboratory Tests Test 11/07/16 12:00 11/08/16 04:47 White Blood Count 12.0th/mm3 (3.8-10.1) 9.4th/mm3 (3.8-10.1) Red Blood Count 2.34mil/mm3 (4.40-5.80) 2.08mil/mm3 (4.40-5.80) Hemoglobin 7.7g/dL (13.8-17.2) 7.1g/dL (13.8-17.2) Hematocrit 24.5% (41.0-50.0) 22.7% (41.0-50.0) Mean Corpuscular Volume 104.7fL (81-100) 109.1fL (81-100) Mean Corpuscular Hemoglobin 32.9pg (27.0-35.0) 34.1pg (27.0-35.0) Mean Corpuscular Hemoglobin Concent 31.4% (32.0-37.0) 31.3% (32.0-37.0) Red Cell Distribution Width 16.9% (12.3-15.4) 17.0% (12.3-15.4) Platelet Count 91bil/L (150-400) 96bil/L (150-400) Sodium Level 142mEq/L (134-144) Potassium Level 4.3mEq/L (3.5-5.2) Chloride Level 111mEq/L (97-108) Carbon Dioxide Level 21mmol/L (18-29) Blood Urea Nitrogen 36mg/dL (8-27) Creatinine 1.47mg/dL (0.76-1.27) Estimat Glomerular Filtration Rate 51mL/min (>59) Glucose Level 129mg/dL (60-99) Calcium Level 8.6mg/dL (8.5-10.1) Total Bilirubin 0.6mg/dL (0.0-1.2) Aspartate Amino Transf (AST/SGOT) 50U/L (0-50) Alanine Aminotransferase (ALT/SGPT) 21U/L (0-44) Alkaline Phosphatase 70U/L (25-160) Total Protein 4.3g/dL (6.4-8.4) Albumin 2.5g/dL (3.4-5.0) Result Diagram: 11/08/1644611/08/16446 General Appearance: Alert, Oriented X3, Cooperative, No Acute Distress Extremities: Distal Pulses Palpable, No Compartment Syndrom Noted, Tenderness/ Swelling Noted (There are several lesions across patient's body that have associated TTP and swelling in addition to surgical site) Postop Sensory Motor: Distal Motor Intact, Movement in Toes, Distal Sensation Intact SURGICAL WOUND : Incision General Appearance: No Direct Observation Activity: Activity per PT Catheters: None Assessment & Plan Impression POD#3 left hip IM nail Problems: Plan Weightbearing: Toe-touch weightbearing 6 weeks DVT prophylaxis: Lovenox 40 mg subcutaneous 3 weeks followed by aspirin 325 mg twice a day 3 weeks Physical therapy for transfers, progressive ambulation, therapeutic exercise Wound care: Change dressing every 1-2 days or as needed if saturated. Discharge plan: Discharge to SNF when medically stable Patient is now stable from an orthopedic standpoint. Ortho will sign off. Appreciate hospitalist service's medical management of this patient. Follow-up plan: In 2 weeks at [facility] with PA for wound check and at [address] Palma with x-rays VTE Prophylaxis: SCDs, Other (Lovenox 40mg SQ) Resuscitation Status: CPR: Attempt Resuscitation Brittnee Navas PA-C Nov 08, 2016 09:36
[2016-11-08] MEDS: Senna-Docusate 8.6-50 mg Tablet PO SCH (10:30)
[2016-11-08 10:35] VITALS: BP 122/81; PULSE 88
[2016-11-08] MEDS: MeTOProlol XL 25 mg ER24 Tablet PO SCH (10:35)
--- NOTE | 2016-11-08 12:20 | NUR ---
Social Work: Readiness for Discharge D: EMR reviewed. Pt is on day 4 of hospitalization for left hip fracture per H&P. T/C from Dorothy at [facility] confirming that they are able to accept pt today with Stickle to follow. Discharge orders are active, SW awaiting finalization, summary, and instructions. notified. Dorothy has coordinated transportation of pt at 1400 pending discharge packet. Paperwork is in chart, [facility] has been faxed. Pt is updated and agreeable to plan, pt is working on additional clothes and items to be delivered to [facility]. Pt to discharge to [facility] with Stickle to follow. SW will continue to follow. A: Pt for whom a SNF via cabulance has been deemed medically necessary. P: [facility] is agreeable to accepting pt today, coordinated transportation at 1400. RN notified. Paperwork is in chart, [facility] has been faxed. Pt is updated and agreeable to plan, pt is working on additional clothes and items to be delivered to [facility]. Pt to discharge to [facility] with [facility]le to follow pending discharge packet from . notified. SW will continue to follow. Dorys Gray, TRACTOR DRIVER
[2016-11-08] MEDS ORDERED: Bisacodyl RECTAL (12:57)
[2016-11-08] MEDS ORDERED: METH5TAB3 PO (12:57)
[2016-11-08] MEDS ORDERED: OXYC1TAB24 PO (12:57)
[2016-11-08] MEDS ORDERED: ATOR20TA65 PO (12:57)
[2016-11-08] MEDS ORDERED: ENOX40DI8 SUBQ (12:57)
[2016-11-08] MEDS ORDERED: DOCU-41 PO (12:57)
[2016-11-08] MEDS ORDERED: ASPI81TA3 PO (12:57)
[2016-11-08] MEDS ORDERED: ASPI325T32 PO (12:59)
--- NOTE | 2016-11-08 13:02 | PCM.DC.MED ---
Discharge Summary Date of Service Nov 08, 2016 Dates of Hospitalization Date of Hospital Admission Nov 04, 2016 at 10:42 Date of Discharge: Nov 08, 2016 Providers: Admitting Physician: Tabatha Monaco MD Primary Care Physician: Heriberto Espino MD Attending Physician: Tabatha Monaco MD Diagnosis at Time of Discharge Diagnosis at Time of Discharge Comminuted left intertrochanteric fracture Anemia of chronic disease plus blood loss anemia secondary to surgery and fracture Chronic systolic CHF Acute renal failure on sick ED stage II Urinary retention, history of bladder cancer, status post complete cystectomy Hepatitis C Chronic pain Tobacco use Procedures XRay, CTs & MRIs X-RAY PELVIS W/LAT HIP (LT) IMPRESSION: Comminuted left intertrochanteric fracture Dictated by: Kuldeep Crook M.D. on 11/04/2016 at 8:30 Approved by: Kuldeep Crook M.D. on 11/04/2016 at 8:33 . ECG 12 Lead sinus [id number] no RV strain pattern Cardiac Echo Impression Interpretation Summary The study quality was technically difficult. The left ventricle is normal in size. The ejection fraction is estimated to be 35-40%. Base to mid septum appears to be akinetic. Anterior and the inferior wall not well visualized. [place] appears to be ellen [place]. Compared to the prior exam, left ventricular function is significantly decreased. The right ventricle is grossly normal size. Right ventricular systolic function is mildly reduced. No significant valvular pathology seen. Mild atherosclerotic plaque(s) in the aortic arch. The IVC is of normal diameter and collapses greater than 50% with a sniff. This suggests a low right atrial pressure of 3 mm Hg. Reading Physician:ANGEL LUIS . Hospital Course Hospital Course: Zan Yarbrough is a 61 year old man with a PMH of bladder cancer s/p complete cystectomy with subsequent revision to bowel harvested bladder, advanced COPD with 40 pack year smoking history, and chronic pain on Methadone who presented with L hip pain. He was diagnosed with L trochanteric hip fracture. Patient underwent orthopedic surgery 11/05/16. After patient improved he was discharged to SNF with recommendation to follow up with his PCP for further management of his medical problems. Patient Condition @ Discharge: good Discharge Disposition: SNF Discharge Activity: PT/OT Discharge Diet: heart healthy, low carb, low fat, low salt, high fiber Information Provided to Patient: information about discharge medications, Discharge Medications: I discussed with patient medication dosage, usage, goals of therapy, side effects, alternatives. During discharge patient was allert, oriented, able to make own informed decisions. We discussed possible severe side effects, adverse reactions, benefits, risks, alternatives of current and newly prescribed medications and diagnostic procedures. Patient verbalized understanding and agreed to current plan of care and discharge. TIME SPENT IN DISCHARGE ACTIVITY: Face to face activity greater then 30 minutes spent in discharge activity. 1. Discussed with patient re: discharge plan of care/treatment, and follow up care/services. 2. Patient agreed with discharge plan and further plan of care, all questions were answered/addressed, no further questions at the time of discharge. Exam Vital Signs (Last) Date Time Temp Pulse Resp B/P Pulse Ox O2 Delivery O2 Flow Rate FiO2 11/08/16 10:35 88 122/81 11/08/16 09:04 18 98 Nasal Cannula 2.00 11/08/16 07:16 36.7 Exam Patient was seen and examined on the day of discharge Test 11/04/16 08:30 11/04/16 14:20 11/05/16 08:57 11/06/16 04:15 Activated Partial Thromboplast Time 24.3sec (22.8-33.0) D-Dimer 39.0mg/L FEU (<0.50) Pro-B-Type Natriuretic Peptide 1725pg/mL (0-210) Procalcitonin 0.37ng/mL (0.00-0.08) Total Creatine Kinase 30U/L (21-232) Troponin T 0.011ug/L (0.0-0.011) Prothrombin Time 11.1sec (8.1-12.5) Prothromb Time International Ratio 1.04ratio Phosphorus Level 4.5mg/dL (2.5-4.9) Magnesium Level 2.0mg/dL (1.6-2.6) Test 11/07/16 05:00 11/08/16 04:47 Neutrophils (%) (Auto) 67.4% (40-74) Lymphocytes (%) (Auto) 17.3% (14-46) Monocytes (%) (Auto) 9.8% (4-12) Eosinophils (%) (Auto) 3.0% (0-5) Basophils (%) (Auto) 0.1% (0-3) White Blood Count 9.4th/mm3 (3.8-10.1) Red Blood Count 2.08mil/mm3 (4.40-5.80) Hemoglobin 7.1g/dL (13.8-17.2) Hematocrit 22.7% (41.0-50.0) Mean Corpuscular Volume 109.1fL (81-100) Mean Corpuscular Hemoglobin 34.1pg (27.0-35.0) Mean Corpuscular Hemoglobin Concent 31.3% (32.0-37.0) Red Cell Distribution Width 17.0% (12.3-15.4) Platelet Count 96bil/L (150-400) Sodium Level 142mEq/L (134-144) Potassium Level 4.3mEq/L (3.5-5.2) Chloride Level 111mEq/L (97-108) Carbon Dioxide Level 21mmol/L (18-29) Blood Urea Nitrogen 36mg/dL (8-27) Creatinine 1.47mg/dL (0.76-1.27) Estimat Glomerular Filtration Rate 51mL/min (>59) Glucose Level 129mg/dL (60-99) Calcium Level 8.6mg/dL (8.5-10.1) Total Bilirubin 0.6mg/dL (0.0-1.2) Aspartate Amino Transf (AST/SGOT) 50U/L (0-50) Alanine Aminotransferase (ALT/SGPT) 21U/L (0-44) Alkaline Phosphatase 70U/L (25-160) Total Protein 4.3g/dL (6.4-8.4) Albumin 2.5g/dL (3.4-5.0) Discharge Medications Discharge Medications Alendronate/Vitamin D3 (Alendronate/Vitamin D3) 1 Each Tablet 1 TAB PO Every Monday (Reported) Aspirin (Aspirin) 325 Mg Tablet 325 MG PO BID Prescribed by: VIKTORIA MARQUES MD Aspirin Chew (Aspirin Chew) 81 Mg Chew 81 MG PO DAILY Prescribed by: VIKTORIA MARQUES MD Atorvastatin Calcium (Atorvastatin Calcium) 20 Mg Tablet 20 MG PO HS Prescribed by: VIKTORIA MARQUES MD Budesonide/Formoterol 160-4.5 mcg Inh (Symbicort 160-4.5 mcg Inh) 120 Puff Inhaler 2 PUFFS INH BID (Reported) Carvedilol (Carvedilol) 3.125 Mg Tablet 3.125 MG PO BID (Reported) Cholecalciferol (Vitamin D3) (Vitamin D3) 1,000 Unit Tab.chew 1,000 UNIT PO DAILY (Reported) Docusate Sodium (Colace) 100 Mg Capsule 100 MG PO BID Prescribed by: VIKTORIA MARQUES MD Enoxaparin Sodium (Enoxaparin Sodium) 40 Mg/0.4 Ml Syringe 40 MG SUBQ Q24 Prescribed by: VIKTORIA MARQUES MD Fluticasone/Salmeterol (Advair 250-50 Diskus) 60 Puff/Inh Disk 1 PUFF IH BID ( Reported) Furosemide (Furosemide) 20 Mg Tab 20 MG PO DAILY (Reported) Methadone (Methadone) 5 Mg Tablet 5 MG PO QID Prescribed by: VIKTORIA MARQUES MD Polyethylene Glycol 3350 (Natura-Lax) 17 Gram/Dose Powder 17 GM PO DAILY ( Reported) Testosterone Cypionate (Testosterone Cypionate) 200 Mg/1 Ml Vial 200 MG IM Monthly (Reported) Tiotropium Ahmeek (Spiriva) 18 Mcg Cap.w.dev 18 MCG IH DAILY (Reported) As needed ([Bisacodyl]) 10 MG SUPP 10 MG RECTAL DAILY PRN PRN For Constipation Prescribed by: VIKTORIA MARQUES MD Albuterol Sulfate (Ventolin HFA Inhaler) 200 Puff/18 Gm Inhaler 2 PUFFS INH Q4H PRN PRN For Shortness of Breath (Reported) oxyCODONE-Acetaminophen 5-325 mg (oxyCODONE-Acetaminophen 5-325 mg) 1 Each Tablet 1 TAB PO Q4H PRN PRN For Pain Prescribed by: MD Viktoria NOVAK Andriy MD Nov 08, 2016 13:02 Alkaline Phosphatase 70U/L (25-160) Total Protein 4.3g/dL (6.4-8.4) Albumin 2.5g/dL (3.4-5.0) Discharge Medications Discharge Medications Alendronate/Vitamin D3 (Alendronate/Vitamin D3) 1 Each Tablet 1 TAB PO Every Monday (Reported) Aspirin (Aspirin) 325 Mg Tablet 325 MG PO BID Prescribed by: VIKTORIA MARQUES MD Aspirin Chew (Aspirin Chew) 81 Mg Chew 81 MG PO DAILY Prescribed by: VIKTORIA MARQUES MD Atorvastatin Calcium (Atorvastatin Calcium) 20 Mg Tablet 20 MG PO HS Prescribed by: VIKTORIA MARQUES MD Budesonide/Formoterol 160-4.5 mcg Inh (Symbicort 160-4.5 mcg Inh) 120 Puff Inhaler 2 PUFFS INH BID (Reported) Carvedilol (Carvedilol) 3.125 Mg Tablet 3.125 MG PO BID (Reported) Cholecalciferol (Vitamin D3) (Vitamin D3) 1,000 Unit Tab.chew 1,000 UNIT PO DAILY (Reported) Docusate Sodium (Colace) 100 Mg Capsule 100 MG PO BID Prescribed by: VIKTORIA MARQUES MD Enoxaparin Sodium (Enoxaparin Sodium) 40 Mg/0.4 Ml Syringe 40 MG SUBQ Q24 Prescribed by: VIKTORIA MARQUES MD Fluticasone/Salmeterol (Advair 250-50 Diskus) 60 Puff/Inh Disk 1 PUFF IH BID ( Reported) Furosemide (Furosemide) 20 Mg Tab 20 MG PO DAILY (Reported) Methadone (Methadone) 5 Mg Tablet 5 MG PO QID Prescribed by: VIKTORIA MARQUES MD Polyethylene Glycol 3350 (Natura-Lax) 17 Gram/Dose Powder 17 GM PO DAILY ( Reported) Testosterone Cypionate (Testosterone Cypionate) 200 Mg/1 Ml Vial 200 MG IM Monthly (Reported) Tiotropium Ahmeek (Spiriva) 18 Mcg Cap.w.dev 18 MCG IH DAILY (Reported) As needed ([Bisacodyl]) 10 MG SUPP 10 MG RECTAL DAILY PRN PRN For Constipation Prescribed by: VIKTORIA MARQUES MD Albuterol Sulfate (Ventolin HFA Inhaler) 200 Puff/18 Gm Inhaler 2 PUFFS INH Q4H PRN PRN For Shortness of Breath (Reported) oxyCODONE-Acetaminophen 5-325 mg (oxyCODONE-Acetaminophen 5-325 mg) 1 Each Tablet 1 TAB PO Q4H PRN PRN For Pain Prescribed by: MD Viktoria NOVAK Andriy MD Nov 08, 2016 13:02
--- NOTE | 2016-11-08 13:22 | NUR ---
DC to SNF imminent--reportedly at 1400 hours. Defer OT to that facility. Ron Srivastava, OTR/L
--- NOTE | 2016-11-08 13:57 | NUR ---
Faxed orders to [facility] and placed copy in the chart. CNA CAREGIVER arranged transport with [facility] and they are picking up patient at this moment.
--- NOTE | 2016-11-08 14:00 | NUR ---
Social Work: Discharge D: EMR reviewed. Pt is on day 4 of hospitalization for left hip fracture per H&P. Pt to discharge today. [facility] is agreeable to pt's discharge. [facility] created packet and faxed orders. Pt is updated and agreeable to plan, pt declined SW calling any [facility] to notify them of discharge. Pt to discharge to [facility] with [facility] to follow, transportation via cab at 1400. RN, UC, pt, and [facility] are updated and agreeable to plan. A: Pt for whom a SNF via cabulance has been deemed medically necessary. P: Pt to discharge to [facility] with Stickle to follow, transportation via cabulance at 1400. RN, UC, pt, and [facility] are updated and agreeable to plan. MANOJ Gale
[2016-11-08 14:48] VITALS: PULSE 81; RESP 18; O2SAT 97
--- NOTE | 2016-11-08 15:33 | NUR ---
Discharge Pt discharged to [facility] in [facility] at 1530 hrs. Internal jugular central line was removed by IV therapist. VSS. Yoder catheter removed and pt was able to urinate 1 time before discharge. Pain controlled. Surgical dressing was reinforced. Report called to [facility].
== END 2016-11-08 15:30 | DRG 481 ==
LOC: EDBD 05:50 → SED 05:50 → EDUNIT# 05:50 → OSC 10:42 → SOU 12:21 → OSC 12:28 → PCC 16:03 → OSC 11-05 18:14
PROVIDERS: ADMIT Internal Medicine; ATTEND Internal Medicine
PROC: 0QS734Z Reposition Left Upper Femur with Internal Fixation Device, Percutaneous Approach (ICD-10-PCS; principal; 2016-11-05 09:00)
DX: S72.23XA Displaced subtrochanteric fracture of unspecified femur, initial encounter for closed fracture (principal); D62 Acute posthemorrhagic anemia; I50.22 Chronic systolic (congestive) heart failure; N17.9 Acute kidney failure, unspecified; F11.20 Opioid dependence, uncomplicated; Z79.82 Long term (current) use of aspirin; G89.29 Other chronic pain; Z79.52 Long term (current) use of systemic steroids; R00.0 Tachycardia, unspecified; Z85.51 Personal history of malignant neoplasm of bladder; Z95.820 Peripheral vascular angioplasty status with implants and grafts; W18.30XA Fall on same level, unspecified, initial encounter; B18.2 Chronic viral hepatitis C; F17.210 Nicotine dependence, cigarettes, uncomplicated; J43.9 Emphysema, unspecified; I12.9 Hypertensive chronic kidney disease with stage 1 through stage 4 chronic kidney disease, or unspecified chronic kidney disease; N18.9 Chronic kidney disease, unspecified; R33.9 Retention of urine, unspecified